=== PATIENT | female | born 1990 | race Caucasian/White ===

== ENCOUNTER → 2021-01-01 | Outpatient (CLI) | payer SELFPAY ==
[2021-01-01 14:37] VITALS: BMI 42.0
== END | disposition home or self-care (01) ==
LOC: LABSPEC 16:32
PROVIDERS: PCP Physician Assistant; Referring Provider Obstetrics & Gynecology; Visit Provider Obstetrics & Gynecology
DX: Z34.90 Encounter for supervision of normal pregnancy, unspecified, unspecified trimester (principal)
CPT/HCPCS: 87086; 87088

== ENCOUNTER → 2021-02-08 10:47 | Outpatient (CLI) | payer SELFPAY ==
[2021-01-17 09:03] VITALS: BMI 42.0
[2021-02-08 11:14] LABS: Absolute Lymphocyte Count 1.98 X10^3/uL (0.83-4.51); Absolute Neutrophil Count 7.3 X10^3/uL (2.0-7.7); Basophil# 0.04 X10^3/uL; Basophil% 0.4 % (0-1); Eosinophil# 0.12 X10^3/uL; Eosinophils% 1.2 % (0-5); Hematocrit 35.6 % (37-47); Hemoglobin 11.8 g/dL (12.0-15.0); Lymphocyte # 1.98 X10^3/ul (0.83-4.51); Lymphocyte % 19.9 % (19-41); Mean Corp Hgb Conc 33.1 g/dL (32-36); Mean Corpuscular Hgb 27.4 pg (27.0-32.0); Mean Corpuscular Volume 82.8 fL (81-99); Mean Platelet Vol. 11.4 fl (6.2-12.0); Monocyte# 0.47 X10^3/uL; Monocyte% 4.7 % (0-10); NRBC Flagged by Analyzer 0 % (0-5); Neutrophil # 7.32 X10^3/uL (2.7-7.7); Neutrophil % 73.4 % (47-70); Platelet Count 289 K/mm3 (150-450); RBC Distribution Width CV 14.7 % (11.6-14.6); RBC Distribution Width SD 44.5 fl (35.1-43.9)
[2021-02-08 11:39] LABS: Glucose Challenge Gest 1H 50g 133 mg/dL (70-140)
[2021-02-08 11:47] LABS: Rubella IgG Reactive (Nonreactive)
[2021-02-08 13:43] LABS: Amphetamine Urine VISTA NEGATIVE (<1000 ng/mL); Barbiturate Urine VISTA NEGATIVE (< 200 ng/mL); Benzodiazepine Urine VISTA NEGATIVE (< 200 ng/mL); Cocaine Urine VISTA NEGATIVE (< 300 ng/mL); Ecstacy Urine VISTA NEGATIVE (< 500 ng/mL); Methadone Urine VISTA NEGATIVE (< 300 ng/mL); PCP Urine VISTA NEGATIVE (< 25 ng/mL); THC Urine VISTA NEGATIVE (< 50 ng/mL); Vista UDS pH Range 5
[2021-02-08 15:45] LABS: Chlamydia Trachomatis by PCR Negative (Negative); Neisserai gonorrhoeae by PCR Negative (Negative); Probe Check PASS; Sample Adequacy Control PASS; Specimen Processing Control PASS
== END ==
PROVIDERS: Nurse Practitioner Women's Health; PCP Physician Assistant; Referring Provider Obstetrics & Gynecology; Visit Provider Obstetrics & Gynecology
DX: O99.211 Obesity complicating pregnancy, first trimester (principal); Z3A.00 Weeks of gestation of pregnancy not specified
CPT/HCPCS: 36415; 80307; 82950; 85025; 86762; 86850; 86900; 86901; 87491; 87591

== ENCOUNTER → 2021-03-20 08:11 | Outpatient (CLI) | payer SELFPAY ==
[2021-02-08 11:23] VITALS: BMI 42.0
--- NOTE | 2021-03-20 08:20 | US_ITS ---
STUDY: SECOND AND THIRD TRIMESTER OBSTETRICAL ULTRASOUND REASON FOR EXAM: Female, 31 years old anatomy LMP: 10/29/2020. TECHNIQUE: Transabdominal and Transvaginal TECHNICAL QUALITY: Adequate. PRIOR ULTRASOUND: None. FINDINGS: There is a single intrauterine fetus. The fetus is in an transverse lie with the head on the maternal left side. There is demonstrated cardiac activity with a heart rate of 140 bpm. There is a normal amniotic fluid volume. The largest amniotic fluid pocket measures 6 cm x 3.4 cm. The amniotic fluid index (SNADRA) is within normal limits. The placenta is anterior in location and is not low lying. There are Grade 0 placental changes. The cervix measures 5.3 cm in length. The bilateral adnexal regions are normal. BIOMETRY: BPD: 4.19 cm: 18 weeks, 4 days HC: 16.12 cm: 18 weeks, 6 days AC: 14.22 cm: 19 weeks, 4 days FL: 3.1 cm: 19 weeks, 4 days CI: 73% FL/BPD: 74% FL/HC: FL/AC: 22% HC/AC: 1.13 age by current US: 19 weeks, 0 days. LITA by current US: 08/14/2021. Estimated weight: 296 grams, +/- 44 grams, 12 %. Age by LMP: 20 weeks, 2 days. LITA by LMP: 08/05/2021. ANATOMY: Gender: Indeterminant Cranium: Normal lateral ventricles. Normal choroid plexus. Normal cerebellum. Normal cisterna magna. Normal face, nose and lips. Chest: Normal 4-chamber heart. Abdomen/Pelvis: Normal diaphragm. Normal stomach. Normal abdominal wall. Normal cord insertion. Normal 3 vessel cord. Normal kidneys. Normal bladder. Spine: Normal cervical spine. Normal thoracic spine. Normal lumbar spine. Normal sacrum. Extremities: Normal bilateral upper extremities. Normal bilateral lower extremities. IMPRESSION: Single live intrauterine gestation with a mean gestational age of 19 weeks. Electronically Signed: Clayton Parr MD at 13:57 EDT , Service support , STUDY: FIRST TRIMESTER OBSTETRICAL ULTRASOUND REASON FOR EXAM: Female, 31 years old anatomy LMP: TECHNIQUE: Transvaginal TECHNICAL QUALITY: Adequate. PRIOR ULTRASOUND: None. FINDINGS: Transvaginal examination was obtained for measurement of the uterine cervix. US/OB Anatomy Scan IMPRESSION: The cervix measures 5.3 cm in length. Electronically Signed: Clayton Parr MD at 13:58 EDT , Service support ,
--- NOTE | 2021-03-20 08:20 | US_ITS ---
STUDY: SECOND AND THIRD TRIMESTER OBSTETRICAL ULTRASOUND REASON FOR EXAM: Female, 31 years old anatomy LMP: 10/29/2020. TECHNIQUE: Transabdominal and Transvaginal TECHNICAL QUALITY: Adequate. PRIOR ULTRASOUND: None. FINDINGS: There is a single intrauterine fetus. The fetus is in an transverse lie with the head on the maternal left side. There is demonstrated cardiac activity with a heart rate of 140 bpm. There is a normal amniotic fluid volume. The largest amniotic fluid pocket measures 6 cm x 3.4 cm. The amniotic fluid index (SANDRA) is within normal limits. The placenta is anterior in location and is not low lying. There are Grade 0 placental changes. The cervix measures 5.3 cm in length. The bilateral adnexal regions are normal. BIOMETRY: BPD: 4.19 cm: 18 weeks, 4 days HC: 16.12 cm: 18 weeks, 6 days AC: 14.22 cm: 19 weeks, 4 days FL: 3.1 cm: 19 weeks, 4 days CI: 73% FL/BPD: 74% FL/HC: FL/AC: 22% HC/AC: 1.13 age by current US: 19 weeks, 0 days. LITA by current US: 08/14/2021. Estimated weight: 296 grams, +/- 44 grams, 12 %. Age by LMP: 20 weeks, 2 days. LITA by LMP: 08/05/2021. ANATOMY: Gender: Indeterminant Cranium: Normal lateral ventricles. Normal choroid plexus. Normal cerebellum. Normal cisterna magna. Normal face, nose and lips. Chest: Normal 4-chamber heart. Abdomen/Pelvis: Normal diaphragm. Normal stomach. Normal abdominal wall. Normal cord insertion. Normal 3 vessel cord. Normal kidneys. Normal bladder. Spine: Normal cervical spine. Normal thoracic spine. Normal lumbar spine. Normal sacrum. Extremities: Normal bilateral upper extremities. Normal bilateral lower extremities. IMPRESSION: Single live intrauterine gestation with a mean gestational age of 19 weeks. Electronically Signed: Clayton Parr MD at 13:57 EDT , Service support , STUDY: FIRST TRIMESTER OBSTETRICAL ULTRASOUND REASON FOR EXAM: Female, 31 years old anatomy LMP: TECHNIQUE: Transvaginal TECHNICAL QUALITY: Adequate. PRIOR ULTRASOUND: None. FINDINGS: Transvaginal examination was obtained for measurement of the uterine cervix. US/Transvaginal w/Preg US IMPRESSION: The cervix measures 5.3 cm in length. Electronically Signed: Clayton Parr MD at 13:58 EDT , Service support ,
== END ==
PROVIDERS: PCP Physician Assistant; Referring Provider Nurse Practitioner Women's Health; Visit Provider Nurse Practitioner Women's Health
DX: Z36.89 Encounter for other specified antenatal screening (principal)
CPT/HCPCS: 76805; 76817

== ENCOUNTER → 2021-05-09 09:24 | Outpatient (CLI) | payer SELFPAY ==
[2021-05-09 09:39] LABS: Absolute Lymphocyte Count 1.97 X10^3/uL (0.83-4.51); Absolute Neutrophil Count 10.5 X10^3/uL (2.0-7.7); Basophil# 0.03 X10^3/uL; Basophil% 0.2 % (0-1); Eosinophil# 0.11 X10^3/uL; Eosinophils% 0.8 % (0-5); Hematocrit 33.5 % (37-47); Hemoglobin 11.3 g/dL (12.0-15.0); Lymphocyte # 1.97 X10^3/ul (0.83-4.51); Mean Corp Hgb Conc 33.7 g/dL (32-36); Mean Corpuscular Hgb 28.5 pg (27.0-32.0); Mean Corpuscular Volume 84.4 fL (81-99); Mean Platelet Vol. 11.6 fl (6.2-12.0); Monocyte# 0.55 X10^3/uL; Monocyte% 4.2 % (0-10); NRBC Flagged by Analyzer 0 % (0-5); Neutrophil # 10.45 X10^3/uL (2.7-7.7); Neutrophil % 79.4 % (47-70); Platelet Count 282 K/mm3 (150-450); RBC Distribution Width CV 14.6 % (11.6-14.6); RBC Distribution Width SD 44.7 fl (35.1-43.9); Red Blood Count 3.97 M/mm3 (4.2-5.4); White Blood Count 13.2 K/mm3 (4.4-11.0)
[2021-05-09 10:03] LABS: Glucose Challenge Gest 1H 50g 130 mg/dL (70-140)
== END ==
PROVIDERS: PCP Physician Assistant; Referring Provider Obstetrics & Gynecology; Visit Provider Obstetrics & Gynecology
DX: Z34.81 Encounter for supervision of other normal pregnancy, first trimester (principal)
CPT/HCPCS: 36415; 82950; 85025

== ENCOUNTER → 2021-06-25 10:49 | Outpatient (CLI) | payer SELFPAY ==
--- NOTE | 2021-06-25 10:57 | US_ITS ---
STUDY: SECOND AND THIRD TRIMESTER OBSTETRICAL ULTRASOUND - LIMITED REASON FOR EXAM: Female, 31 years old . growth. LMP: 10/29/2020. PRIOR ULTRASOUND: Comparison is made with prior study dated 03/20/2021. TECHNIQUE: Transabdominal TECHNICAL QUALITY: Adequate. FINDINGS: There is a single intrauterine fetus. The fetus is in a cephalic presentation. There is demonstrated cardiac activity with a heart rate of 149 bpm. There is a normal amniotic fluid volume. The largest amniotic fluid pocket measures 4.3 cm x 2.9 cm. The amniotic fluid index (SANDRA) is 12.02 cm. The placenta is anterior in location and is not low lying. There are Grade 1 placental changes. The cervix measures 4.6 cm in length. BIOMETRY: BPD: 7.92 cm: 31 weeks, 5 days HC: 29.72 cm: 32 weeks, 6 days AC: 29.14 cm: 33 weeks, 0 days FL: 6.25 cm: 30 weeks, 2 days Age by LMP: 34 weeks, 1 days. LITA by LMP: 08/05/2021. age by prior US: 32 weeks, 6 days. LITA by prior US: 08/14/2021. age by current US: 32 weeks, 4 days. LITA by current US: 08/16/2021. Estimated weight: 2052 grams, +/- 300 grams, 13.2 percentile. US/OB Limited With Biometrics IMPRESSION: Single live intrauterine gestation with a mean gestational age of 32 weeks and 6 days. The measurements obtained today fall within normal limits. Electronically Signed: Clayton Parr MD at 13:07 EST , Service support ,
== END ==
PROVIDERS: PCP Physician Assistant; Referring Provider Obstetrics & Gynecology; Visit Provider Obstetrics & Gynecology
DX: O98.513 Other viral diseases complicating pregnancy, third trimester (principal); U07.1 COVID-19; Z3A.32 32 weeks gestation of pregnancy
CPT/HCPCS: 76816

== ENCOUNTER 2021-07-11 12:45 | Outpatient (CLI) | payer SELFPAY | END 2021-07-11 23:59 | disposition short-term general hospital (02) | LOC: LABSPEC 12:46 | PROVIDERS: PCP Physician Assistant; Visit Provider Obstetrics & Gynecology | DX: Z34.81 Encounter for supervision of other normal pregnancy, first trimester (principal) | CPT/HCPCS: 87081 ==

== ENCOUNTER 2021-08-01 19:15 | Inpatient (IN) | payer SELFPAY ==
[2021-08-01 20:41] VITALS: PULSE 111; O2SAT 97
[2021-08-01 20:43] VITALS: BP 119/72; PULSE 109
[2021-08-01 20:52] VITALS: BMI 36.7
[2021-08-01] MEDS: Lactated Ringers 1,000 ML 50 ML IV (21:15)
[2021-08-01 21:31] LABS: Absolute Lymphocyte Count 2.25 X10^3/uL (0.83-4.51); Absolute Neutrophil Count 9.7 X10^3/uL (2.0-7.7); Basophil# 0.03 X10^3/uL; Basophil% 0.2 % (0-1); Eosinophil# 0.05 X10^3/uL; Eosinophils% 0.4 % (0-5); Hematocrit 32.2 % (37-47); Hemoglobin 10.4 g/dL (12.0-15.0); Lymphocyte # 2.25 X10^3/ul (0.83-4.51); Lymphocyte % 17.6 % (19-41); Mean Corp Hgb Conc 32.3 g/dL (32-36); Mean Corpuscular Hgb 27.8 pg (27.0-32.0); Mean Corpuscular Volume 86.1 fL (81-99); Mean Platelet Vol. 12.2 fl (6.2-12.0); Monocyte# 0.66 X10^3/uL; Monocyte% 5.2 % (0-10); NRBC Flagged by Analyzer 0 % (0-5); Neutrophil # 9.72 X10^3/uL (2.7-7.7); Neutrophil % 76.2 % (47-70); Platelet Count 269 K/mm3 (150-450); RBC Distribution Width CV 15.2 % (11.6-14.6); RBC Distribution Width SD 47.7 fl (35.1-43.9); Red Blood Count 3.74 M/mm3 (4.2-5.4); White Blood Count 12.8 K/mm3 (4.4-11.0)
[2021-08-01 22:27] VITALS: TEMP 37.4
[2021-08-01 22:30] VITALS: BP 100/61; PULSE 111
[2021-08-01 22:31] VITALS: PULSE 96; O2SAT 97
[2021-08-01] MEDS: miSOPROStol 25 MCG TABLET VAGINAL (23:05)
[2021-08-01 23:13] LABS: HIV - WCH Non-Reactive (Nonreactive); Hepatitis C Antibody Non-Reactive (Nonreactive); Syphilis Antibodies Non-reactive
[2021-08-02] VITALS (16 sets, daily range): BP systolic 99–128; BP diastolic 57–79; PULSE 47–113; RESP 18; TEMP 36.5–36.9; O2SAT 97–99
[2021-08-02] MEDS: Acetaminophen 500 MG Tablet PO (02:24)
[2021-08-02] MEDS: miSOPROStol 25 MCG TABLET VAGINAL (03:25)
[2021-08-02] MEDS: Lactated Ringers 500 ML 999 ML IV (06:51)
--- NOTE | 2021-08-02 07:35 | HP.PCM.OB_ITS ---
HPI - General General Date of Admission: 08/01/21 HPI Narrative MANA MENDOZA, is a 31y/o @ 39 weeks 4 days who presents to L&D for IOL due to recurrent loss, MTHFR, and maternal discomfort at term. She denies loss of fluid or dec fm. Overnight she was given 2 doses of cytotec and states that she did not sleep well secondary to contractions. Maternal Data Information LITA Calculator Estimated Delivery Date Method Current WG Current Estimate 08/05/21 LMP (Certain) 39w 4d PFSH PFSH Medical History (Updated 07/25/21 @ 09:46 by Alie Mack) COVID-19 Home Medications aspirin 81 mg tablet,delayed release 81 mg PO DAILY 01/01/21 [History Last Taken 07/29/21 08:00] levomefolate calcium 7.5 mg tablet 7.5 mg PO DAILY 01/01/21 [History Last Taken 08/01/21 10:00] ondansetron HCl 4 mg tablet 4 mg PO Q8H PRN #20 tab 01/17/21 [Rx Last Taken Unknown] Allergy/AdvReac Type Severity Reaction Status Date / Time No Known Allergies Allergy Verified 08/01/21 20:53 Family History Grandfather Cancer Grandmother Cancer Surgical History (Updated 08/01/21 @ 21:28 by Hayde Rogers) History of surgery S/P dilation and curettage Social History Smoking Status: Never smoker alcohol intake: never substance use type: does not use caffeine: Yes additional social history: -Caesar History 7 Elective abortions Hx Para 2 Spontaneous abortions 4 Hx # Term Pregnancies Ectopic pregnancies Hx # Pregnancies Multiple births # of living children 2 Past Pregnancies Del. Date Name GA/Weeks Outcome Route Bth Weight Infant Gen Labor Lgth Anesthesia Del Locatn Provider FOB 04/12/10 Kennedy 41 live - full term 8lbs 1oz Male epidural [facility] Dr. Sayda Maynard 01/31/13 Paul 41 live - full term 8lbs 3oz [facility] Delivery Date: 10/07/10 No issues during or delivery Alie Mack Delivery Date: 01/31/13 No issues during or delivery. FrederickAlie Visit Details Expected Delivery Route/Plan Labor Preferences- labor support person: [] labor intervention preferences: [] pain management options preferred: [] cut cord/dad catch: [] : [] PP control planned: [] discussed possible routes of delivery and associated risks: [] special requests: [] Plans covid vaccine: counseled regarding risk of covid in vs vaccination and declined vaccination flu vaccine: declined tdap vaccine: declined rhogam: [] LARC form signed: [] Problem list reviewed and updated with the most current plan of care details and appropriate orders placed. Relevant counseling for the gestational age provided. Continue routine care and follow up unless otherwise noted in visit notes/problem list details OB Flowsheet Initial Weight: 215 lb Date -?-?-?-?-?-?-?-?-?-?-?-?- EGA Weight BP Urine Prot -?-?-?-?-?-?-?-?-?-?-?-?- Glucose FHR FuHt Pres Dilation -?-?-?-?-?-?-?-?-?-?-?-?- Effaced St Visit Note 01/01/21 -?-?-?-?-?-?-?-?-?-?-?-?- 9w 1d 215 lb 2 oz (+2 oz) 108/86 -?-?-?-?-?-?-?-?-?-?-?-?- 175 -?-?-?-?-?-?-?-?-?-?-?-?- GP - CRL 22mm co nsistent with LMP 01/17/21 -?-?-?-?-?-?-?-?-?-?-?-?- 11w 3d 211 lb (-4 lb) 120/80 Negative -?-?-?-?-?-?-?-?-?-?-?-?- Negative 168 -?-?-?-?-?-?-?-?-?-?-?-?- GP - no cramping or bleeding. Attempted to do NOB labs with GCT but threw up. Will pretreat with zofran and do next visit. Discussed tx of constipation 02/08/21 -?-?-?-?-?-?-?-?-?-?-?-?- 14w 4d 118/82 Negative -?-?-?-?-?-?-?-?-?-?-?-?- Negative 160 -?-?-?-?-?-?-?-?-?-?-?-?- MH-NO Vb, LOF. P NL today. US active, live iup. Order [facility] anatomy US 03/14/21 -?-?-?-?-?-?-?-?-?-?-?-?- 19w 3d 209 lb (-6 lb) 126/82 Negative -?-?-?-?-?-?-?-?-?-?-?-?- Negative 150 -?-?-?-?-?-?-?-?-?-?-?-?- GP - no cramping or bleeding. Anatomy next week. Birthday is today - going to coffee with sisters. 04/11/21 -?-?-?-?-?-?-?-?-?-?-?-?- 23w 3d 207 lb 6 oz (-7 lb 10 oz) 106/76 Negative -?-?-?-?-?-?-?-?-?-?-?-?- Negative 155 23 -?-?-?-?-?-?-?-?-?-?-?-?- GP - no ctx, LOF , VB, DFM. Anatomy nl except could not tell gender. Declines follow-up scan. 05/09/21 -?-?-?-?-?-?-?-?-?-?-?-?- 27w 3d 211 lb (-4 lb) 118/82 -?-?-?-?-?-?-?-?-?-?-?-?- 160 28 -?-?-?-?-?-?-?-?-?-?-?-?- SM- no vb lof go od fm no regular ctx declined tdap 05/29/21 -?-?-?-?-?-?-?-?-?-?-?-?- 30w 2d 212 lb 8 oz (-2 lb 8 oz) 100/70 Negative -?-?-?-?-?-?-?-?-?-?-?-?- Negative 157 30 -?-?-?-?-?-?-?-?-?-?-?-?- JV- no lof ,vagi nal bleeding, or cramping. + fm. 06/27/21 -?-?-?-?-?-?-?-?-?-?-?-?- 34w 3d 209 lb 4 oz (-5 lb 12 oz) 124/84 Negative -?-?-?-?-?-?-?-?-?-?-?-?- Negative 145 34 Transverse -?-?-?-?-?-?-?-?-?-?-?-?- JV- plan for bed side ultrasound next visit for presentation. no lof, vaginal bleeding, or dec fm. 07/11/21 -?-?-?-?-?-?-?-?-?-?-?-?- 36w 3d 206 lb 4 oz (-8 lb 12 oz) 110/82 Negative -?-?-?-?-?-?-?-?-?-?-?-?- Negative 167 36 Cephalic 1 -?-?-?-?-?-?-?-?-?-?-?-?- 50 -3 JV- ultras ound today shows vtx presentation. GBS collected. stop progesterone 07/17/21 -?-?-?-?-?-?-?-?-?-?-?-?- 37w 2d 208 lb (-7 lb) 106/74 Negative -?-?-?-?-?-?-?-?-?-?-?-?- Negative 150 37 Cephalic -?-?-?-?-?-?-?-?-?-?-?-?- SM- no vb lof go od fm no regular ctx 07/25/21 -?-?-?-?-?-?-?-?-?-?-?-?- 38w 3d 207 lb 6 oz (-7 lb 10 oz) 120/80 Negative -?-?-?-?-?-?-?-?-?-?-?-?- Negative 157 Cephalic 1 -?-?-?-?-?-?-?-?-?-?-?-?- 50 -3 JV- no lof , vaginal bleeding, or dec fm. plan IOL at 39+ weeks h/o mthfr, recurrent loss 08/01/21 -?-?-?-?-?-?-?-?-?-?-?-?- 39w 3d 207 lb 6.4 oz (-7 lb 9.6 oz) 119/72 100/61 127/78 128/76 -?-?-?-?-?-?-?-?-?-?-?-?- -?-?-?-?-?-?-?-?-?-?-?-?- ROS Constitutional Constitutional: Denies change in weight, fatigue, fever(s), headache(s), poor appetite or weakness Eyes Eyes: Denies blurry vision, change in vision, seeing flashes or spots in vision ENT HEENT: Denies dizziness, headache(s), loss taste/smell or sore throat Cardiovascular Cardiovascular: Denies chest pain, dizziness, dyspnea, irregular heart rhythm, leg edema, palpitations, rapid heart rate or vomiting Respiratory/Chest Respiratory/Chest: Denies chest tightness, cough, dyspnea or breast pain Gastrointestinal Gastrointestinal: Denies abdominal pain, anorexia, constipation, cramping, diarrhea, hemorrhoids, vomiting or weight changes Genitourinary Genitourinary: Denies dysuria, flank pain, genital lesions, genital pain, urinary frequency or urinary urgency Musculoskeletal Musculoskeletal: Denies back pain, difficulty walking, joint pain, limited range of motion, muscle cramps or numbness Integumentary Integumentary: Denies lesions or unusual bruising Neurologic Neurologic: Denies abnormal movements, abnormal speech, dizziness, numbness, seizure-like activity or syncope Psychiatric Psychiatric: Denies anxiety, behavioral changes, change in appetite, change in libido, cognitive impairment, confusion, depression, difficulty concentrating, hallucinations or suicidal thoughts Endocrine Endocrinology: Denies excessive sweating, polydipsia or polyuria Hematologic/Lymphatic Hematologic/Lymphatic: Denies easy bleeding, easy bruising or lymphadenopathy Allergic/Immunologic Allergic/Immunologic: Denies itchy eyes, lip swelling, seasonal rhinorrhea, rhinitis, throat swelling, tongue swelling, eczemia, wheezing or asthma Vital Signs Vital Signs Vital Signs: 08/01/21 20:41 08/01/21 20:43 08/01/21 22:27 Temperature 99.4 F H Temperature Source Temporal Pulse Rate 111 H 109 H Blood Pressure 119/72 BP Systolic 119 BP Diastolic 72 Pulse Ox 97 08/01/21 22:30 08/01/21 22:31 08/02/21 03:12 Temperature 97.9 F Temperature Source Temporal Pulse Rate 111 H 96 97 Blood Pressure 100/61 127/78 H BP Systolic 100 127 BP Diastolic 61 78 Pulse Ox 97 99 08/02/21 06:58 08/02/21 07:22 Temperature 98.3 F 98.2 F Temperature Source Temporal Temporal Pulse Rate 103 H Blood Pressure 128/76 H BP Systolic 128 BP Diastolic 76 Pulse Ox 98 Weight Weight: 207 lb 6.4 oz Body Mass Index (BMI) 36.7 Physical Exam Const alert, oriented x3, no apparent distress and healthy appearing General Appearance: cooperative; Negative for anxious HEENT normocephalic Face and Sinus: normal facial exam Eyes EOMs intact bilaterally and no scleral icterus General Eye: normal appearance of both eyes Neck full ROM and supple Lymph Lymphatic: no lymphadenopathy noted Chest Chest: abnormal inspection of the chest Resp normal respiratory effort Effort and Inspection: able to speak in complete sentences Cardio regular rate GI soft to palpation and non-tender Inspection: gravid Palpation: soft; Negative for tender external exam normal Amniotic Fluid: other cx: 3/80/0 and anterior. membranes ruptured with clear fluid return. FHT cat 1, contractins q1-2 min. Back/Spine no CVA tenderness Extremity normal to inspection, full ROM and no clubbing, cyanosis or edema General Extremity: Negative for calf tenderness or edema Skin Lesions: no lesions Rashes: no rashes Psych mental status grossly normal Labs Labs Labs: Blood Type B POSITIVE Antibody Screen NEGATIVE Hct 32.2 % (37-47) L Hgb 10.4 g/dL (12.0-15.0) L Pap Smear Negative Obstetrics US Syphilis Total Ab Non-reactive Rubella IgG Antibody Reactive (Nonreactive) Hep Bs Antigen Pending HIV 1&2 Antibody Non-Reactive (Nonreactive) C.trachomatis DNA (PCR) Negative (Negative) Glucose 1 Hr 50 gm 130 mg/dL (70-140) Assessment & Plan (1) Supervision of normal : QUALIFIERS: Normal : other normal Trimester: first trimester Qualified Code(s): Z34.81 - Encounter for supervision of other normal , first trimester COMMENT: PRR (minimal labs) LITA 08/05/21 [place] PC:Paul Benavides, Spouse:Caesar (2) MTHFR deficiency complicating : QUALIFIERS: Trimester: first trimester Qualified Code(s): O99.281 - Endocrine, nutritional and metabolic diseases complicating , first trimester; E72.12 - Methylenetetrahydrofolate reductase deficiency COMMENT: Taking methylfolate. On ASA. (3) : QUALIFIERS: Weeks of gestation: 38 weeks Qualified Code(s): Z3A.38 - 38 weeks gestation of COMMENT: neg. GBS, Declines NIPT, carrier, and AFP; NL anatomy. declined std testing, agrees to be done at delivery. (4) Recurrent loss: COMMENT: Miscarriage x4. Taking ASA. (5) COVID-19: COMMENT: suspected positive, asa and growth US 35-36 wks- NL growth 06/25. PLAN: Patient presents IOL, plan management for with cytotec/pitocin/AROM. Pain management: plans epidural. GBS negative. Management of any complications: I have reviewed the [facility] and made any clinically relevant updates.
[2021-08-02 09:16] LABS: Hepatitis B Surface Antigen Nonreactive (Nonreactive)
[2021-08-02] MEDS: Oxytocin 30 units/NS 500 ml 30 UNITS/500 ML IV.SOLN 334 UNITS IV (11:16)
--- NOTE | 2021-08-02 11:37 | OP.PCM_ITS ---
Assessment & Plan (1) Supervision of normal : QUALIFIERS: Normal : other normal Trimester: first trimester Qualified Code(s): Z34.81 - Encounter for supervision of other normal , first trimester COMMENT: PRR (minimal labs) LITA 08/05/21 [place]! PC:Paul Benavides, Spouse:Caesar (2) MTHFR deficiency complicating : QUALIFIERS: Trimester: first trimester Qualified Code(s): O99.281 - Endocrine, nutritional and metabolic diseases complicating , first trimester; E72.12 - Methylenetetrahydrofolate reductase deficiency COMMENT: Taking methylfolate. On ASA. (3) : QUALIFIERS: Weeks of gestation: 38 weeks Qualified Code(s): Z3A.38 - 38 weeks gestation of COMMENT: neg. GBS, Declines NIPT, carrier, and AFP; NL anatomy. declined std testing, agrees to be done at delivery. (4) Recurrent loss: COMMENT: Miscarriage x4. Taking ASA. (5) COVID-19: COMMENT: suspected positive, asa and growth US 35-36 wks- NL growth 06/25. Maternal Data Information LITA Calculator Estimated Delivery Date Method Current WG Current Estimate 08/05/21 LMP (Certain) 39w 4d Vaginal Delivery Maternal Presentation Maternal Presentation: Elective Induction Type of Induction: Amniotomy and Cytotec Operative Information Date of Procedure: 08/02/21 Pre-Operative Diagnosis: 39 weeks, MTHFR, COVID in , , recurrent losses Post-Operative Diagnosis: 39 weeks, MTHFR, COVID in , , recurrent losses Type of Anesthesia: None Estimated Blood Loss: 200cc Findings Description of Procedure: Patient began pushing and delivered the head in the MORENITA presentation. The head was delivered atraumatically and a loose nuchal cord ?1 was identified and easily reduced over the 's head. The anterior and posterior shoulders delivered without complication followed by the rest of the infant and the was placed on the maternal abdomen. Delayed cord clamping was employed for approximately 60 seconds. Cord was clamped and cut and gentle traction was applied to the cord and the placenta delivered spontaneously immediately following it was noted to be intact with three-vessel cord. The perineum and vagina were inspected and noted to have no laceration. EBL was 200cc. Patient and tolerated delivery well. Presentation: MORENITA Amniotic Membrane Rupture Type: Spontaneous Amniotic Fluid Description: Clear Placental Delivery Description: Spontaneous Placenta Disposition: [facility] Cord Vessel Description: 3 Vessels Cord Entanglement: Around neck x 1, loose Infant A Gender: Female (1 minute): 8 (5 minute): 9 Delayed Cord Clamping: Yes Post Vaginal Delivery Medications Given After Delivery: IV Pitocin Episiotomy Description: None Laceration: None Complication Complications: None Multi Select Codes Urinary/Genital Urinary/Genital CPT Codes: 40592 Vaginal Delivery [facility]
[2021-08-02] MEDS: 0.9% Saline Lock 10 ML Syringe IV (13:52)
[2021-08-02] MEDS: Ibuprofen 600 MG Tablet PO (14:10)
[2021-08-02] MEDS: Acetaminophen 500 MG Tablet 1000 MG PO (17:57)
--- NOTE | 2021-08-02 20:27 | PCM.DC ---
Discharge Instructions Diet Discharge Diet: No restrictions Activity Discharge Activity: Return to Normal Activity, May Not Drive (while taking narcotic pain medications.) and May Shower May resume sexual activity in: 4-6 weeks Dressing / Incision Call your doctor if your incision/area has: Continuous Slow Oozing, Sudden Increased Bleeding, Increased Pain/ Swelling, Increased Redness and Foul Smelling Discharge Follow Up Care Please Follow Up With: Nancy Tracy DO When: Call [phone] to make an appointment with your doctor in 6 weeks. If you had elevated blood pressure or 4th degree laceration, you will need to be seen in 2 weeks. Test Results: Test results from this visit will be discussed in further detail at your follow-up appointment, if applicable. Discharge Plan Admission Admit Date/Time: 08/01/21 19:15 Primary Reason for Your Visit: vaginal delivery Attending Provider: Nancy Tracy Primary Care Provider: Le Miller Discharge Orders/Prescriptions Prescriptions: New ibuprofen 800 mg tablet 800 mg PO Q8H PRN (Reason: pain) 7 Days Qty: 30 RF: 0 Continued levomefolate calcium [L-Methylfolate] 7.5 mg tablet 7.5 mg PO DAILY RF: 0 Discontinued aspirin 81 mg tablet,delayed release (DR/EC) 81 mg PO DAILY RF: 0 ondansetron HCl 4 mg tablet 4 mg PO Q8H PRN (Reason: nausea and vomiting) Qty: 20 RF: 0 Referrals / Follow Up: Le Miller PA [Primary Care Provider] - Disposition Disposition (needs filled in before D/C Order can be placed): Home, Self Care
[2021-08-03] VITALS (8 sets, daily range): BP systolic 109–121; BP diastolic 69–76; PULSE 98–241; RESP 16–18; TEMP 36.3–36.6; O2SAT 83–96
[2021-08-03] MEDS: Ibuprofen 600 MG Tablet PO ×2 (00:46→12:07)
--- NOTE | 2021-08-03 08:21 | PCM.PN.OB ---
Subjective Subjective Patient doing well without complaints. Tolerating PO. Ambulating and voiding without difficulty. Feeding well. Denies chest pain, shortness of breath, calf pain/swelling, fevers, chills, lightheadedness. Objective Data Objective Data Vital Signs: Vital Signs Temp Pulse Resp BP Pulse Ox 97.5 F L 120 H 18 114/75 97 08/03/21 04:03 08/03/21 08:13 08/03/21 04:03 08/03/21 08:13 08/02/21 19:46 Oxygen Delivery Method Room Air Weight: 207 lb 6.4 oz Body Mass Index (BMI) 36.7 Intake & Output: Intake and Output for Last 24 Hours 08/01/21 08/02/21 08/03/21 23:59 23:59 23:59 Intake Total 1480 / 1480 Output Total 400 / 400 Balance 1080 / 1080 Lab / Micro Data Result Diagrams: 08/01/21 21:15 Labs: Laboratory Results - last 24 hr 08/01/21 21:15: Hep Bs Antigen Nonreactive Micro: Microbiology 08/01/21 21:00 Nasal Secretion SARS-CoV-2 Antigen (Rapid) - Final ROS Constitutional Constitutional: Denies chills, fatigue, fever(s), poor appetite or weakness Eyes Eyes: Denies blurry vision, change in vision, seeing flashes or spots in vision ENT HEENT: Denies dizziness, headache(s), loss taste/smell or sore throat Cardiovascular Cardiovascular: Denies chest pain, dizziness, dyspnea, irregular heart rhythm, palpitations or rapid heart rate Respiratory/Chest Respiratory/Chest: Denies chest tightness, cough, dyspnea or breast pain Gastrointestinal Gastrointestinal: Denies abdominal pain, constipation or vomiting Genitourinary Genitourinary: Denies dysuria or flank pain Musculoskeletal Musculoskeletal: Denies difficulty walking, joint pain, limited range of motion or numbness Neurologic Neurologic: Denies abnormal movements, abnormal speech, dizziness, numbness, seizure-like activity or syncope Psychiatric Psychiatric: Denies anxiety, behavioral changes, change in appetite, confusion, depression or suicidal thoughts Physical Exam Const alert, oriented x3 and no apparent distress General Appearance: cooperative and comfortable Resp normal respiratory effort Cardio regular rate GI normal to inspection, nondistended, normoactive bowel sounds GI Narrative: uterus is firm below umbilicus Palpation: soft Bimanual Exam - Adnexa, Other: Negative for cul-de-sac fullness Back/Spine no CVA tenderness and thoraco-lumbar ROM normal Extremity normal to inspection, no clubbing, cyanosis or edema, no calf tenderness and no pedal edema Psych mental status grossly normal, thought process normal, cooperative, affect normal, speech normal, activity/motor behavior normal, denies homicidal ideation and denies suicidal ideation Assessment & Plan (1) Status post vaginal delivery: PLAN: s/p PPD # 1 1. routine post delivery care 2. breast feeding- support given 3. rh positive 4. pt would like to be discharged to home today after her baby's tests have been completed
--- NOTE | 2021-08-03 09:36 | NURSING ---
heart rate auscultated. regular rate. patient denies shortness of breath or pain at this time. resting in bed.
== END 2021-08-03 14:35 | disposition home or self-care (01) | DRG 805 ==
PROVIDERS: Admitting Provider Obstetrics & Gynecology; PCP Physician Assistant; Visit Provider Obstetrics & Gynecology
DX: O75.89 Other specified complications of labor and delivery (principal); Z37.0 Single live birth; U07.1 COVID-19; E72.12 Methylenetetrahydrofolate reductase deficiency; O98.52 Other viral diseases complicating childbirth; O69.81X0 Labor and delivery complicated by cord around neck, without compression, not applicable or unspecified; O26.23 Pregnancy care for patient with recurrent pregnancy loss, third trimester; Z79.82 Long term (current) use of aspirin; Z3A.39 39 weeks gestation of pregnancy
CPT/HCPCS: 59025; 59050; 85025; 86703; 86780; 86803; 86850; 86900; 86901; 87340; 87426; 99218; J7120; A4216; G0378

== ENCOUNTER 2021-09-14 17:03 | Outpatient (CLI) | payer SELFPAY ==
[2021-09-22 19:27] LABS: HPV Reflexed? NOT INDICATED
== END 2021-09-14 23:59 | disposition home or self-care (01) ==
PROVIDERS: PCP Physician Assistant; Visit Provider Obstetrics & Gynecology
DX: Z12.4 Encounter for screening for malignant neoplasm of cervix (principal)
CPT/HCPCS: 88175; G0145

== ENCOUNTER → 2022-05-20 | Outpatient (CLI) | payer SELFPAY ==
--- NOTE | 2022-05-20 15:07 | US_ITS ---
INDICATION: Scheduled for DTC after miscarriage week prior to examination EXAMINATION: Ultrasound US OB Transvaginal TECHNIQUE: Transvaginal (for optimal evaluation of the adnexa) pelvic ultrasound was performed. Grayscale, spectral waveform, and color flow Doppler evaluation of the adnexa. COMPARISON: None. LMP: [03/06/2022 Beta-hCG: Unknown FINDINGS: UTERUS: 11.7 x 7.9 x 6.6 cm. RIGHT OVARY: 3.6 x 2.3 x 2.1 cm. 1.7 cm anechoic cyst. LEFT OVARY: 3.7 x 2.5 x 1.2 cm. Normal. FREE FLUID: None. INTRAUTERINE GESTATIONAL SAC(s) (size/shape): None. Heterogenous endometrium measures up to 15 mm thickness, internal vascularity demonstrated.. YOLK SAC: Not identified POLE: Not identified HEART MOTION: Not detected. US/Transvaginal w/Preg US IMPRESSION: No intrauterine demonstrated. Abnormal endometrium suspicious for retained products of conception versus endometritis or hematoma. Electronically Signed: Jeff Azul MD at 17:14 EST ,
== END | disposition home or self-care (01) ==
PROVIDERS: PCP Physician Assistant; Referring Provider Obstetrics & Gynecology; Visit Provider Obstetrics & Gynecology
DX: O09.299 Supervision of pregnancy with other poor reproductive or obstetric history, unspecified trimester (principal); O02.1 Missed abortion
CPT/HCPCS: 76817

== ENCOUNTER 2022-05-21 13:27 | Day surgery (SDC) | payer SELFPAY ==
--- NOTE | 2022-05-21 10:21 | PCM.HP.BLA ---
History and Physical Date of Admission: 05/21/22 Intake Vital Signs ? 05/16/2210:16 05/16/2210:17 Height 5 ft 5 ft Weight: 223 lb 8 oz ? BMI 43.6 ? BP 121/77 H ? Intake Visit Reasons:?FU Miscarriage per [employer] Required: No Is patient in pain?: No Allergies No Known Allergies Allergy (Verified 05/16/22 10:17) Medications levomefolate calcium 7.5 mg tablet (L-Methylfolate) 7.5 mg PO DAILY MTHFR #90 tabs 09/14/21 [Rx Confirmed 05/16/22] mecobalamin-levomefolate calcium-pyridoxal phos 3 mg-35 mg-2 mg tablet (X-Aczugl-N2-B12) 1 tab PO DAILY 30 days #30 tabs 12/10/21 [Rx Confirmed 05/16/22] vitamins no.163-iron bis-gly 20 mg-folate no.10 1 mg tablet (PNV Tabs 20-1) tab PO 05/01/22 [History Confirmed 05/16/22] aspirin 81 mg chewable tablet 81 mg PO DAILY 05/06/22 [History Confirmed 05/16/22] Post menopausal: No Patient : No : No PFSH Medical History? COVID-19 Vaginal delivery Surgical History? History of surgery S/P dilation and curettage Family History? Grandfather CancerGrandmother Cancer Social History? adopted:? No household members:? spouse and children housing:? house number of children:? 3 current occupational status:? unemployed pets and animals:? No history of recent travel:? Yes ([place] ) out of state: Yes out of country: No sexually active:? Yes Smoking Status:? Never smoker alcohol intake:? never substance use type:? does not use well-balanced diet:? daily or most days caffeine:? No eating out:? rarely or never during the past year weight has:? remained stable what type of physical activity do you participate in:? none jono/adventism:? Lutheran seatbelt use:? always do you feel safe at home:? Yes additional social history:? -Caesar [place] HPI FU Miscarriage per Details: MANA MENDOZA is a 32 year old who presents for follow up miscarriage and 2 doses of cytotec. she is still bleeding but not hemorrhaging. no dizziness or sob. She is scheduled now for a suction dilation and curettage to remove any products of conception. She is also requesting fallopian tube removal for permanent sterilization. History ? ? ? 8 ? Elective abortions ? Hx Para ? ? ? 3 ? Spontaneous abortions ? ? ? 5 Hx # Term Pregnancies ? Ectopic pregnancies ? Hx # Pregnancies ? Multiple births ? # of living children ? ? ? 3 Past Pregnancies Del. Date Name GA/Weeks Outcome Route Bth Weight Infant Gen Labor Lgth Anesthesia Del Locatn Provider FOB Unknown ? IOL 04/12/10 Kennedy 41 live - full term 8lbs 1oz Male ? epidural [facility] [place] Dr. Sayda Maynard 01/31/13 Paul 41 live - full term 8lbs 3oz Male ? none [facility] [place] Dr. Jose A Maynard 08/02/21 [place] 38 live - full term 6lbs 4oz Female ? ? [facility] Dr. Chaudhari Delivery Date: 04/12/10? Last Updated by: Alie Mack ? ? ? No issues during or delivery Delivery Date: 01/31/13? Last Updated by: Alie Mack ? ? ? No issues during or delivery. ROS Const ROS Unobtainable: All systems reviewed & are unremarkable except as noted in H Resp Resp: Reports system reviewed and no additional complaints, except as documented; Denies cough GI GI: Reports as per HPI Psych Psych: Reports system reviewed and no additional complaints, except as documented Exam Const General: cooperative, healthy appearing, comfortable and no acute distress Resp Effort & Inspection: normal respiratory effort General: bimanual renal exam normal bilaterally External Female Exam: normal appearance of the urethra Urethra: normal appearance of the urethra Speculum Exam - Vagina: normal appearance of the vagina Speculum Exam - Cervix: normal appearance of the cervix Bimanual Exam- Adnexa, other: normal adnexae and normal Pelvic Support: normal Other: ultrasound shows a 2.5 cm area of retained products in the uterus. Skin General: no rashes or lesions noted Psych Appearance: grossly normal Speech and Movement: speech and movement normal Coding Level of Care Code Off vis,est,level 4 Diagnoses Missed ? O02.1 Contraceptive management? Z30.9 Assessment and Plan Assessment and Plan (1) Missed : ?Status:?Acute ?Comment: CRL now 3 mm with subchorionic hematoma, no FHT seen, plan medical management fu 1 week (2) Contraceptive management: ?Status:?Acute Plan After discussing the patient's diagnosis and treatment plan options, patient wishes to proceed with surgical management.? I have discussed with the patient the risks, benefits, and alternatives of the procedure which include but are not limited to risks of anesthesia, bleeding, infection, possible damage to bowel, bladder, or surrounding vasculature which could lead to additional surgery to evaluate any complications.? Patient agrees to procedure and wishes to proceed.? ACOG/uptodate references given for additional information regarding procedure.? pt will need a suction d&C and also requesting bilateral salpingectomy. surgery scheduled for friday. UPDATE- I have seen the patient and performed any clinically relevant updates to the history and physical exam. Nancy Tracy, DO
[2022-05-21] MEDS: Lactated Ringers 1,000 ML 15 ML IV (13:50)
[2022-05-21 13:54] VITALS: BP 113/54; PULSE 117; RESP 15; TEMP 36.7; O2SAT 100; BMI 41.6
[2022-05-21] MEDS: Doxycycline 100 MG CAPSULE PO (14:09)
[2022-05-21 14:15] LABS: Hematocrit 35.5 % (37-47); Hemoglobin 11.3 g/dL (12.0-15.0); Mean Corp Hgb Conc 31.8 g/dL (32-36); Mean Corpuscular Hgb 26.6 pg (27.0-32.0); Mean Corpuscular Volume 83.5 fL (81-99); Mean Platelet Vol. 10.7 fl (6.2-12.0); Platelet Count 352 K/mm3 (150-450); RBC Distribution Width CV 15.8 % (11.6-14.6); RBC Distribution Width SD 47.9 fl (35.1-43.9); Red Blood Count 4.25 M/mm3 (4.2-5.4); White Blood Count 11.7 K/mm3 (4.4-11.0)
[2022-05-21 14:27] LABS: Partial Thromboplast Time 28.4 Seconds (24.1-36.2); Prothrombin Time (Protime)PT. 13.2 SECONDS (11.7-14.9)
[2022-05-21 14:32] LABS: AST(SGOT) 10 U/L (15-37); Alanine Aminotransfer ALT/SGPT 20 U/L (13-56); Albumin, Serum 3.7 g/dL (3.2-5.0); Alkaline Phosphatase 75 U/L (45-117); Bilirubin, Direct 0.08 mg/dL (0.00-0.30); Globulin 4.2 g/dL (2.2-4.2); Protein, Total 7.9 g/dL (6.4-8.2)
--- NOTE | 2022-05-21 15:05 | POC_PTH ---
PATIENT: MANA MENDOZA LOC: [facility] [place][id number] AGE/SX: 32/F ROOM: RE05/21/[address]: Dr. Nancy Tracy DO : 1990 BED: DIS: 05/21/2022 SPEC #: [id number] RECD: 05/22/22 08:32 STATUS: CARMEN DANE #: [id number] HERMILO: 05/21/22 15:[address]: Nancy Tracy DEPT: SURGICAL PATHOLOGY RECD BY: Marii Garcia ENTERED: 05/22/22 11:50 SP TYPE: PROD CONC OTHR DR: ZAIAR Woodson Tissues: A - Product of conception, NOS B - Fallopian tube Procedures: Surgery Specimen Level II Surgery Specimen Level IV HEADER OPERATION: Dilation and curettage, laparoscopic bilateral PRE-OP DIAGNOSIS: Missed , contraceptive management TISSUE SUBMITTED: A. Products of conception, B. Bilateral fallopian tubes MICROSCOPIC DIAGNOSIS A. Products of conception: Decidual, gestational endometrium and rare immature chorionic villi (products of conception), clinically missed . B. Bilateral fallopian tubes, salpingectomy: Bilateral fallopian tubes, no pathologic diagnosis. /ZENOBIA 05/23/22 MICROSCOPIC DESCRIPTION Slides are reviewed. GROSS DESCRIPTION A. Received is one container labeled with the patient name and designated products of conception. The specimen consists of multiple irregular fragments of light hemorrhagic soft tissue that in aggregate measure 5 x 5 x 1 cm. Stevedoring Supervisor tissue is submitted in three cassettes. / ZENOBIA:joy 05/22/2022 Rest of the specimen is submitted in 7 more cassettes, 4 -10. SJ:joy 05/23/2022 B. Received in fixative is one container labeled with the patient's name and designated bilateral fallopian tubes. Received in fixative is one container labeled with the patient's name and designated bilateral fallopian tubes. The specimen consists of bilateral fallopian tubes including fimbrial ends each measuring 6.5 m in length and 0.6 cm in diameter. The fallopian tubes are not identified as right or left. Sections reveal unremarkable cut surfaces. Stevedoring Supervisor sections are submitted in two cassettes with each cassette containing one fallopian tube. / ZENOBIA:joy 05/22/2022 TC:5 CPT: 60667 x2, 52716
--- NOTE | 2022-05-21 15:17 | DCINST_ITS ---
Discharge Instructions Diet Discharge Diet: No restrictions Activity Discharge Activity: Return to Normal Activity, May Shower and May Take a Tub Bath (after 1 week) Return to work on:: 05/13/22 May shower in (days): 1 May resume sexual activity in: 1-2 weeks Weight Bearing Status: Weight bearing as tolerated Lifting Restrictions: none Dressing / Incision Call your doctor if your incision/area has: Sudden Increased Bleeding, Increased Pain/ Swelling, Increased Redness, Foul Smelling Discharge and Swelling at the incision site Call your doctor if you observe: Fever of 101 or Higher, Using more than 1 pad per hour, Shortness of breath and Uncontrolled pain Suture Line Care: Avoid Pulling/Pushing and Avoid Pinching/Bending Remove Dressing in: 1 week Cleanse incision/area with: Keep Dressing Clean & Dry Follow Up Care Please Follow Up With: Nancy Tracy DO When: Call [phone] to schedule appointment. Test Results: Test results from this visit will be discussed in further detail at your follow- up appointment, if applicable. Discharge Plan Admission Attending Provider: Nancy Tracy Primary Care Provider: Le Miller Discharge Orders/Prescriptions Prescriptions: No Action aspirin 81 mg tablet,chewable 81 mg PO DAILY D-Biazge-K1-B12 3-35-2 mg tablet 1 tab PO DAILY Referrals / Follow Up: Le Miller PA [Primary Care Provider] - Disposition Disposition (needs filled in before D/C Order can be placed): Home, Self Care
--- NOTE | 2022-05-21 15:21 | OP.PCM_ITS ---
Operative Report Date of Procedure: 05/21/22 preoperative diagnosis: incomplete and desires permanent sterilization postoperative diagnosis: incomplete and desires permanent sterilization Procedure: suction dilation and curettage and laparoscopic bilateral salpingectomy Surgeon: Dr. Nancy Tracy DO Business Support Administrator: STEVIE Judd Anesthesia: General Endotracheal intubation EBL: 50cc Urine to kick bucket drained with a red rubber catheter Complications: none Implanted material: none Details: Patient was prepped and draped in a normal sterile fashion under MAC anesthesia. A weighted speculum was placed in the vagina and the anterior lip of the cervix was grasped with a single-tooth tenaculum. A paracervical block was placed with 1% lidocaine. Cervix was progressively dilated to allow passage of a size 7 curved suction curettage. The suction device was turned on and removed contents of the uterus. Next, a sharp Curettage was performed until a gritty texture was noted. All instruments were removed from the vagina and excellent hemostasis was noted. Gloves were changed. Attention was then paid to the abdominal portion of the procedure and the umbilicus was elevated with towel clamps and injected with Marcaine and after a 5 mm incision was made and 5 mm optical trocar was placed under direct visualization into the Abdomen. CO2 gas was used to insufflate the abdomen. A left lower quadrant 5 mm port and a 5 mm port suprapubically were placed under direct visualization. Uterus was well visualized and bilateral fallopian tubes identified and bilateral tubes were elevated and transecting across the mesosalpinx and the attachment to the uterine corpus bilaterally the tubes were removed without complication. This was performed using the ligasure device. Excellent hemostasis was noted. Fallopian tubes were removed through the lower port sites without complication. Liver and upper abdomen were visualized notably within normal limits and no other gross abnormalities were seen in the abdomen. All instruments removed from the abdomen after gas was desufflated. Port sites were closed with 3-0 Monocryl Steri's and op sites were applied. All instruments removed from the vagina and patient was awoken and taken recovery in stable condition. Multi Select Codes Urinary/Genital Urinary/Genital CPT Codes: 66657 Laproscopic BS/O and Other Procedure See Report (suction dilation and curettage )
[2022-05-21] MEDS: Methylergonovine 0.2 MG/ML Ampul IM (15:55)
[2022-05-21] MEDS: Bupivacaine 0.25% 30 ML Vial (16:05)
[2022-05-21 16:30] VITALS: BP 113/54; BP 124/83; PULSE 103; RESP 20; TEMP 36.8; O2SAT 96
[2022-05-21 16:45] VITALS: BP 113/54; BP 127/86; PULSE 97; RESP 18; O2SAT 97
[2022-05-21 17:04] VITALS: BP 113/54; BP 131/86; PULSE 93; RESP 18; TEMP 36.6; O2SAT 98
[2022-05-21] MEDS: HYDROcodone Bitartrate/Apap 5/325 Tablet PO (17:30)
[2022-05-21 17:43] VITALS: BP 101/70; BP 113/54; PULSE 97; RESP 16; O2SAT 96
== END 2022-05-21 18:15 | disposition home or self-care (01) ==
LOC: SDC 13:30 → AC 13:31
PROVIDERS: Anesthesiology; PCP Physician Assistant; Referring Provider Obstetrics & Gynecology; Visit Provider Obstetrics & Gynecology
PROC: (CPT 58661; principal; 2022-05-21 14:50)
PROC: (CPT 58661; 2022-05-21 14:50)
DX: Z30.2 Encounter for sterilization (principal); O02.1 Missed abortion; Z79.82 Long term (current) use of aspirin; Z86.16 Personal history of COVID-19
CPT/HCPCS: 58661; 59820; 00840; 80076; 85027; 85610; 85730; 86850; 86900; 86901; 88302; 88305; J7120; J2405

== ENCOUNTER → 2022-06-03 | Outpatient (CLI) | payer SELFPAY ==
[2022-06-03 13:36] LABS: Thyroid Stim Hormone (TSH) 2.02 uIU/mL (0.358-3.74)
[2022-06-03 13:46] LABS: Hemoglobin A1c 5.7 % (3.8-5.6)
[2022-06-05 04:07] LABS: Dilute Prothrombin Time (dPT) 35.1 sec (0.0-47.6); Dilute Russell Viper Venom 38.1 sec (0.0-47.0); PTT-LA 34.9 sec (0.0-51.9); dPT Confirm Ratio 1.05 Ratio (0.00-1.34)
[2022-06-05 12:11] LABS: Interpretation Comment: (.)
== END | disposition home or self-care (01) ==
LOC: LAB 12:16
PROVIDERS: PCP Physician Assistant; Referring Provider Obstetrics & Gynecology; Visit Provider Obstetrics & Gynecology
DX: O09.299 Supervision of pregnancy with other poor reproductive or obstetric history, unspecified trimester (principal); O20.0 Threatened abortion; N96 Recurrent pregnancy loss
CPT/HCPCS: 36415; 83036; 84443

== ENCOUNTER 2025-03-11 18:58 | Emergency (ER) | payer SELFPAY ==
[2025-03-11 19:00] VITALS: BP 134/94; PULSE 129; RESP 16; TEMP 36.8; O2SAT 98; BMI 43.6
--- NOTE | 2025-03-11 20:24 | EDS_ITS ---
HPI HPI - Female History of Present Illness Chief Complaint: Female C/O Narrative Narrative: 34-year-old female past medical history of bilateral salpingectomy [address] Vences presents with concern for ectopic . She relates history that she had normal menses previously. Her last normal menstrual period was February 04. She is now 4 days late. She states she took a home test which was positive. She has not had any vaginal bleeding, and she denies any pelvic pain or other symptoms. If she is , this would make her a G9, P3. PFSH PFSH Medical History Wears glasses MTHFR mutation Easy bruising Non-smoker Shortness of breath on exertion Vaginal delivery COVID-19 Home Medications ?Medication ?Instructions ?Recorded ?Last Taken ?Type NK 03/11/25 Unknown History Allergy/AdvReac Type Severity Reaction Status Date / Time No Known Allergies Allergy Verified 03/11/25 19:04 Family History Grandfather Cancer Grandmother Cancer Surgical History S/P dilation and curettage (~05/21/22) H/O tubal ligation History of surgery S/P dilation and curettage Social History adopted: No household members: spouse and children housing: house number of children: 3 current occupational status: unemployed pets and animals: No history of recent travel: Yes ([place] ) out of state: Yes out of country: No sexually active: Yes Smoking Status: Never smoker alcohol intake: never substance use type: does not use well-balanced diet: daily or most days caffeine: No eating out: rarely or never during the past year weight has: remained stable what type of physical activity do you participate in: none jono/judaism: Spiritism seatbelt use: always do you feel safe at home: Yes additional social history: -Caesar [place] ROS ROS ED ROS Narrative Review of systems is positive for positive home test. 4 days late for start of menses. Denies any pelvic pain, vaginal bleeding, fevers, chills, or other symptoms. EXAM Physical Exam Narrative Exam Narrative: Afebrile. Vital signs noted. Nontoxic-appearing. Cardiovascular examination reveals mild tachycardia. Lungs clear to auscultation bilaterally. Abdomen soft and nontender without guarding or rebound. Neurological examination nonfocal, nonlateralizing. Awake, alert, interactive, appropriate. Const Vital Signs: 03/11/25 19:00 Temperature 98.2 F Temperature Source Oral Pulse Rate 129 H Respiratory Rate 16 Blood Pressure 134/94 H Blood Pressure Mean 107 Pulse Ox 98 MDM MDM MDM Narrative Medical decision making narrative: Differential diagnosis includes but not limited to ectopic versus intrauterine versus false positive home test. Initially, CBC, CMP, and serum test was obtained. Should her screening/serum p regnancy be positive, I would add a beta hCG as well as considering an ultrasound. I reviewed her laboratory work and she has slightly elevated white count of 11.4 which I think is nonspecific, hemoglobin normal at 12.6 with hematocrit 38.6, platelet count normal at 330. CMP is remarkable for creatinine of 0.57 and glucose 108 but otherwise grossly unremarkable with normal LFTs. Of significance, serum test is negative. Patient was reassured. She may have had a false positive on her home test. As I am not concerned for ectopic , I feel she can be discharged to follow-up with her WELDER/FITTER should she not experience her menses within the next week. Return instructions to the emergency department were reviewed. Disposition is discharged home in stable condition. History & Record Review Discussion w/independent historian: Patient Lab Data Attestation: I reviewed the patient's lab results. Labs: Laboratory Results - last 24 hr 03/11/25 20:35 WBC 11.4 H RBC 4.70 Hgb 12.6 Hct 38.6 MCV 82.1 MCH 26.8 L MCHC 32.6 RDW Std Deviation 42.8 RDW Coeff of Gisselle 14.4 Plt Count 330 MPV 11.0 Immature Gran % (Auto) 0.400 Neut % (Auto) 72.7 H Lymph % (Auto) 19.6 [place] % (Auto) 5.9 Eos % (Auto) 0.9 Baso % (Auto) 0.5 Absolute Neuts (auto) 8.3 H Absolute Lymphs (auto) 2.23 Nucleated RBC % 0 Sodium 140 Potassium 4.2 Chloride 105 Carbon Dioxide 25.1 Anion Gap 10 BUN 10 Creatinine 0.57 L Estim Creat Clear Calc 157.90 Est GFR (MDRD) Non-Af 124 BUN/Creatinine Ratio 18.0 Glucose 108 H Calcium 9.4 Total Bilirubin 0.25 AST 16 ALT 11 Alkaline Phosphatase 74 Total Protein 7.7 Albumin 4.2 Globulin 3.5 Albumin/Globulin Ratio 1.2 Serum , Qual NEGATIVE Discharge Plan Triage Chief Complaint: Female C/O ED Provider: John Fuentes Dx/Rx/DC Orders Clinical Impression: Menstrual period late, Encounter for medical screening examination Instructions: Understanding Uterine Bleeding, ED Screening Exam Medical Nonurgent Prescriptions: No Action NK Primary Care Provider: Le Miller Referrals: Nancy Tracy DO [Med Staff - Active Staff] - 1 Week if not improving Le Miller PA [Primary Care Provider] - Activity Restrictions/Additional Instructions: Your serum test was negative today. You may have had a false positive home test. Follow-up with your WELDER/FITTER within 1 week if you do not begin your menses. You may require another test. Print Language: Somali Disposition Disposition: Home, Self Care
[2025-03-11 20:50] LABS: Internal QC Validated? YES +Cl - CLEAR BKGD; Pregnancy, Serum, hCG Quali. NEGATIVE Negative; Record Kit Lot#, Serum Preg. 947241
[2025-03-11 20:54] LABS: Hematocrit 38.6 % (37-47); Hemoglobin 12.6 g/dL (12.0-15.0); Immature Granulocytes Count 0.050 X10^3/uL (0.0-0.0); Mean Corp Hgb Conc 32.6 g/dL (32-36); Mean Corpuscular Volume 82.1 fL (81-99); Mean Platelet Vol. 11.0 fl (6.2-12.0); NRBC Flagged by Analyzer 0 % (0-5); Platelet Count 330 K/mm3 (150-450); RBC Distribution Width CV 14.4 % (11.6-14.6); RBC Distribution Width SD 42.8 fl (35.1-43.9); Red Blood Count 4.70 M/mm3 (4.2-5.4); White Blood Count 11.4 K/mm3 (4.4-11.0)
[2025-03-11 20:57] LABS: AST(SGOT) 16 U/L (<=31); Alanine Aminotransfer ALT/SGPT 11 U/L (<=34); Albumin, Serum 4.2 g/dL (3.5-5.0); Alkaline Phosphatase 74 U/L (35-104); Anion Gap 10 (5-15); BUN 10 mg/dL (4-19); BUN/Creat Ratio 18.0 RATIO (10-20); Calcium,Total 9.4 mg/dL (7.6-11.0); Carbon Dioxide 25.1 mmol/L (21.0-32.0); Chloride 105 mmol/L (98-108); Estimated Creatinine Clearance 157.90 ml/min (50-250); Globulin 3.5 g/dL (2.2-4.2); Glucose 108 mg/dL (70-99); Potassium 4.2 mmol/L (3.3-5.1)
--- OUTSIDE RECORDS SUMMARY | 2025-03-11 20:59 | XMS RPT_ITS | CCD ---
Author Organization [facility] CliniSymi Care Team Providers Care Specimen Collector Name Role Phone CAROLE BULL Admitting Unavailable CAROLE BULL Attending Unavailable CAROLE, BULL Primary Care Unavailable DAPHNE COLUNGA MD Consulting Unavailable PROVIDER, UNKNOWN Consulting Unavailable PROVIDER, UNKNOWN Consulting Unavailable PROVIDER, UNKNOWN Consulting Unavailable Miller ZAIRA MENESES Le Primary Care Provider [phone] ZAIRA Landers Le Referring Provider Dr. Jill Ocampo Attending Provider Dr. Nancy Tracy Attending Provider [phone] Dr. Nancy Tracy Other Provider Miller, Le Referring Unavailable Miller, Le Primary Care Unavailable Jill Ocampo Attending Unavailable Miller, Le Referring Unavailable VandNancy Shukla Attending Unavailabl e Miller, Le Primary Care Unavailable VandNancy Shukla Admitting Unavailabl e Miller, Le Primary Care Unavailable Nancy Tracy Attending Unavailabl e Vande VelNancy hernandez Consulting Unavailabl e Vande VeldeNancy Consulting Unavailabl e Vande VeldeNancy Attending Unavailabl e Miller, Le Primary Care Unavailable Miller, Le Referring Unavailable Miller, Le Primary Care Unavailable Jill Ocampo Attending Unavailable Vande VelNancy hernandez Attending Unavailabl e Miller, Le Primary Care Unavailable Miller, Le Referring Unavailable Vande VelNancy hernandez Attending Unavailabl e Miller, Le Primary Care Unavailable Miller, El Referring Unavailable Miller, Le Primary Care Unavailable Jill Ocampo Attending Unavailable Jill Ocampo Referring Unavailable Miller, Le Referring Unavailable Miller, Le Primary Care Unavailable Vande Velde, Nancy Attending Unavailabl e Vande Veldavid, Nancy Referring Unavailabl e Miller, Le Primary Care Unavailable Vande Jonathan, Nancy Attending Unavailabl e Miller, Le Primary Care Unavailable Jill Ocampo Attending Unavailable Jill Ocampo Referring Unavailable Miller, Le Primary Care Unavailable Vande Veldavid, Nancy Attending Unavailabl e Vande Velde, Nancy Attending Unavailabl e Miller, Le Primary Care Unavailable Vande Velde, Nancy Referring Unavailabl e Miller, Le Primary Care Unavailable Vande Jonathan, Nancy Attending Unavailabl e Vande VeldeNancy Admitting Unavailabl e Miller, Le Primary Care Unavailable Vande Jonathan, Nancy Attending Unavailabl e Jill Ocampo Referring Unavailable Miller, Le Referring Unavailable Miller, Le Primary Care Unavailable Jill Ocampo Attending Unavailable Miller, Le Referring Unavailable Jill Ocampo Attending Unavailable Miller, Le Primary Care Unavailable Miller, Le Primary Care Unavailable Miller, Le Referring Unavailable Vande Velde, Nancy Attending Unavailabl e Medications Completed/Discontinued Medications Medication Drug Class(es) Dates Sig (Normalized) Sig (Original) acetaminophen 80 mg chewable tablet (3 sources) Start: 05-01-2022 End: 05-06-2022 take 81 mg by mouth once daily Acetaminophen Discontinued 81 MG PO DAILY April 30, 2022 11:00pm May 06, 2022 8:42am acetaminophen 325 mg / oxyCODONE hydrochloride 5 mg oral tablet (3 sources) Opioid Agonist Start: 05-21-2022 End: 06-03-2022 take 1 tablet by mouth every four hours Oxycodone-Acetamino phen (Percocet) 5-325 mg tablet Discontinued 1 TABLET PO Q4H 23 01May 21, 2022 June 03, 2022 12:00pm aspirin 81 mg chewable tablet (6 sources) Platelet Aggregation Inhibitor, Nonsteroidal Anti-inflammatory Drug Start: 05-06-2022 End: 05-21-2022 take 81 mg by mouth once daily Aspirin Discontinued 81 MG PO DAILY May 05, 2022 11:00pm May 21, 2022 3:19pm Start: 01-01-2021 End: 08-02-2021 take 81 mg by mouth once daily Aspirin Discontinued 81 MG PO DAILY December 31, 2020 11:00pm August 02, 2021 8:28pm ibuprofen 800 mg oral tablet (3 sources) Nonsteroidal Anti-inflammatory Drug Start: 08-02-2021 End: 09-14-2021 take 800 mg by mouth every eight hours Ibuprofen Discontinued 800 MG PO Q8H 30 7 August 02, 2021 12:00am September 14, 2021 3:08pm levomefolate (3 sources) Start: 01-01-2021 End: 09-14-2021 take 1 tablet by mouth once daily Levomefolate Calcium (L-Methylfolate) 7.5 mg tablet Discontinued 7.5 MG PO DAILY December 31, 2020 11:00pm September 14, 2021 3:31pm Mecobal-Levomefola t Ca-B6 Phos (B-Ibtxwe-G3-B12) 3-35-2 mg tablet (6 sources) Start: 05-17-2022 End: 06-03-2022 take 1 tablet by mouth once daily Mecobal-Levomefol at Ca-B6 Phos (N-Cslosx-E5-B12) 3-35-2 mg tablet Discontinued 1 TABLET PO DAILY May 17, 2022 3:02pm June 03, 2022 12:00pm Start: 05-17-2022 take 1 tablet by nessa th once daily Mecobal-Levomefolat Ca-B6 Phos (P-Nfzpxy-D4-B12) 3-35-2 mg tablet Active 1 TABLET PO DAILY May 17, 2022 3:02pm Start: 12-10-2021 End: 05-17-2022 take 1 tablet by mouth once daily Mecobal-Levomefolat Ca-B6 Phos (B-Jmnlda-S7-B12) 3-35-2 mg tablet Discontinued 1 TABLET PO DAILY December 09, 2021 11:00pm May 17, 2022 3:02pm miSOPROStol 0.2 mg oral tablet (3 sources) Prostaglandin E1 Analog Start: 05-09-2022 End: 05-16-2022 take 4 tablets by mouth once Misoprostol (Cytotec) 200 mcg tablet Discontinued 800 MCG PO .complex 4 May 08, 2022 11:00pm May 16, 2022 10:23am 4 tablets vaginally or orally once. naproxen 250 mg oral tablet (3 sources) Nonsteroidal Anti-inflammatory Drug Start: 05-21-2022 End: 06-03-2022 take 500 mg by mouth every eight hours as needed Naproxen Discontinued 500 MG PO EVERY 8 HOURS NEEDED May 21, 2022 12:00am June 03, 2022 12:00pm ondansetron 4 mg oral tablet (3 sources) Serotonin-3 Receptor Antagonist Start: 01-17-2021 End: 08-02-2021 take 4 mg by mouth every eight hours Ondansetron Hcl Discontinued 4 MG PO Q8H January 16, 2021 11:00pm August 02, 2021 8:28pm Problems Active Problems Problem Classification Problem Date Documented Date Episodic/Chronic Contraceptive and procreative management (8 sources) Patient encounter status; Translations: [Encounter for contraceptive management, unspecified] Onset: 05-17-20 Episodic Hemorrhage during ; abruptio placenta; placenta previa (7 sources) Threatened miscarriage; Translations: [Threatened ] Onset: 05-09-20 Episodic Other aftercare (2 sources) Encounter for follow-up examination after completed treatment for conditions other than malignant neoplasm; Translations: [Follow-up examination, following surgery, unspecified] Onset: 06-03-20 Episodic Other complications of (3 sources) Maternal obesity complicating , childbirth and the puerperium, antepartum; Translations: [Obesity complicating , unspecified trimester] Chronic Other complications of (4 sources) Obesity complicating , unspecified trimester; Translations: [Obesity complicating , childbirth, or the puerperium, unspecified as to episode of care or not applicable] Onset: 05-06-20 Chronic Other complications of (3 sources) Missed miscarriage; Translations: [Missed ] Episodic Other complications of (3 sources) H/O: miscarriage; Translations: [Supervision of with other poor reproductive or obstetric history, unspecified trimester] Episodic Other complications of (3 sources) High risk ; Translations: [Supervision of high risk , unspecified, unspecified trimester] Episodic Other complications of (3 sources) Inherited disorder of folate metabolism; Translations: [Endocrine, nutritional and metabolic diseases complicating , unspecified trimester] Episodic Other complications of (7 sources) Supervision of with other poor reproductive or obstetric history, unspecified trimester; Translations: [Supervision of high-risk with history of ] Onset: 06-13-20 Episodic Other complications of (3 sources) Endocrine, nutritional and metabolic diseases complicating , unspecified trimester; Translations: [Other current conditions classifiable elsewhere of mother, unspecified as to episode of care or not applicable] Episodic Other complications of (3 sources) Supervision of high risk , unspecified, unspecified trimester; Translations: [Supervision of unspecified high-risk ] Episodic Other complications of (7 sources) Missed ; Translations: [Missed ] Onset: 05-17-20 Episodic Other female genital disorders (3 sources) History of past delivery; Translations: [Status post vaginal delivery] Episodic Other female genital disorders (3 sources) Recurrent miscarriage; Translations: [Recurrent loss] Episodic Other nutritional; endocrine; and metabolic disorders (2 sources) Methylenetetrahydrofolate reductase deficiency; 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] Onset: 09-06-19 Chronic Residual codes; unclassified (3 sources) Influenza vaccination declined; Translations: [Immunization not carried out because of patient refusal] Episodic Residual codes; unclassified (1 source) 8 weeks gestation of ; Translations: [8 weeks gestation of ] Onset: 05-06-20 Episodic Viral infection (3 sources) Disease caused by 2019-nCoV; Translations: [COVID-19] Episodic Viral infection (2 sources) COVID-19; Translations: [U07.1 - COVID-19] Onset: 08-08-19 Past or Other Problems Problem Classification Problem Date Documented Date Episodic/Chronic Other complications of (2 sources) Endocrine, nutritional and metabolic diseases complicating , first trimester; Translations: [O99.281 - Endocrine, nutritional and metabolic diseases complicating , first trimester] Onset: 09-05-2021 Episodic Other complications of (1 source) Other viral diseases complicating , third trimester; Translations: [O98.513 - Other viral diseases complicating , third trimester] Onset: 06-27-2021 Episodic Other female genital disorders (2 sources) Recurrent loss; Translations: [N96 - Recurrent loss] Onset: 08-08-2021 Episodic Other and delivery including normal (18 sources) Vaginal delivery; Translations: [Encounter for full-term uncomplicated delivery] Onset: 09-05-2021 Episodic Other screening for suspected conditions (not mental disorders or infectious disease) (1 source) Encounter for screening for malignant neoplasm of cervix; Translations: [Z12.4 - Encounter for screening for malignant neoplasm of cervix] Onset: 09-21-2021 Episodic Residual codes; unclassified (2 sources) 38 weeks gestation of ; Translations: [Z3A.38 - 38 weeks gestation of ] Onset: 08-08-2021 Episodic Residual codes; unclassified (1 source) 37 weeks gestation of ; Translations: [Z3A.37 - 37 weeks gestation of ] Onset: 07-17-2021 Episodic Residual codes; unclassified (1 source) 34 weeks gestation of ; Translations: [Z3A.34 - 34 weeks gestation of ] Onset: 06-27-2021 Episodic Results Test Name Value Interpretation Reference Range Facility Lupus Anticoagulant Compon 1 08-05-2021 Interpretation Comment: Normal . [facility] Comment on above: Result Comment: No l upus anticoagulant was detected. Performed at: [address] [id number] Passenger [place]: Kellen Still MD, Phone: [phone] Performed By: #### L 4500.0100, L501.9520, L501.9985 ####[facility] [address] [place], [address] aPTT Coag (Bld) [Time] 34.9 s Normal 0.0-51.9 [facility] Comment on above: Performed By: #### L 4500.0100, L501.9520, L501.9985 ####[facility] [address] [place], [address] DILUTE PT (dPT) 35.1 sec Normal 0.0-47.6 [facility] Comment on above: Performed By: #### L 4500.0100, L501.9520, L501.9985 ####[facility] [address] [place], [address] dPT Conf. Ratio 1.05 Ratio Normal 0.00-1.34 [facility] Comment on above: Performed By: #### L 4500.0100, L501.9520, L501.9985 ####[facility] [address] [place], [address] DRVVT 38.1 sec Normal 0.0-47.0 [facility] Comment on above: Performed By: #### L 4500.0100, L501.9520, L501.9985 ####[facility] [address] [place], [address] THROMBIN TIME 17.0 sec Normal 0.0-23.0 [facility] Comment on above: Performed By: #### L 4500.0100, L501.9520, L501.9985 ####[facility] [address] [place], [address] Dilute Gus's viper venom timeon 06-03-2022 dRVVT Coag (PPP) [Time] 38.1 s 0.0-47.0 [facility] Work Phone: Hemoglobin A1con 06-03-2022 HbA1c (Bld) [Mass fraction] 5.7 % High 3.8-5.6 [facility] Comment on above: Result Comment: Norm al < 5.7 % Prediabetic 5.7 - 6.4 % Diabetic >or= 6.5 % Please note range changes. Performed By: #### L 4500.0100, L501.9520, L501.9985 ####[facility] [address] [place], [place], [id number] No Panel Informationon 06-03 Thyroid Stimulating Hormone (TSH) 2.02 uIU/mL 0.358-3.74 [facility] Work Phone: Explosive Technician Office Visit Reporton 06-03-2022 Explosive Technician Office Visit Report [facility] [address] [place] [address] OFFICE VISIT Date of Service: 06/03/22 MR#: [id number] Acct: [id number] Name: MANA NARANJO Rep #: [id number] : 1990 Provider: Dr. Jill hager MD Age/Sex: 32/F [place] [facility] [place]: Signed Intake Vital Signs 05/21/22 13:54 06/03/22 12:00 06/03/22 12:01 Height 5 ft 1 in 5 ft 1 in 5 ft 1 in Weight: 221 lb BMI 41.7 BP 111/78 Intake Visit Reasons: 1w post op D C SAB Chief Complaint: 2w post op D C Medical Doctor Nuclear Medicine Required: No Is patient in pain?: No Allergies No Known Allergies Allergy (Verified 05/21/22 13:54) Is last menstrual period known: No Post menopausal: No Patient : No : No PFSH Medical History COVID-19 Easy bruising MTHFR mutation Non-smoker Shortness of breath on exertion Vaginal delivery Wears glasses Surgical History (Updated 06/03/22 @ 12:03 by Trini Negron) H/O tubal ligation History of surgery S/P dilation and curettage Family History Grandfather Cancer Grandmother Cancer Social History adopted: No household members: spouse and children housing: house number of children: 3 current occupational status: unemployed pets and animals: No history of recent travel: Yes ([place] ) out of state: Yes out of country: No sexually active: Yes Smoking Status: Never smoker alcohol intake: never substance use type: does not use well-balanced diet: daily or most days caffeine: No eating out: rarely or never during the past year weight has: remained stable what type of physical activity do you participate in: none jono/sabianist: [employer] seatbelt use: always do you feel safe at home: Yes additional social history: -[place] HPI 1w post op D C SAB Details: MANA NARANJO is a 32 year old who presents for fu visit doing well recovered. History 8 Elective abortions Hx Para 3 Spontaneous abortions 5 Hx # Term Pregnancies Ectopic pregnancies Hx # Pregnancies Multiple births # of living children 3 Past Pregnancies Del. Date Name GA/Weeks Outcome Route Bth Weight Gen Labor Lgth Anesthesia Del Locatn Provider FOB Unknown IOL 04/12/10 Kennedy 41 live - full term 8lbs 1oz Male epidural [facility] Dr. Sayda Maynard 01/31/13 Paul 41 live - full term 8lbs 3oz Male none [facility] Reji Maynard 08/02/21 Elliana 38 live - full term 6lbs 4oz Female [facility] Dr Tyshawn Chaudhari Delivery Date: 04/12/10 Last Updated by: Alie Mack No issues during or delivery Delivery Date: 01/31/13 Last Updated by: Alie Mack No issues during or delivery. ROS Const Constitutional: Reports system reviewed and no additional complaints, except as documented GI GI: Denies abdominal pain, cramping, nausea or vomiting : Denies pelvic pain, urinary frequency, urinary incontinence, urinary urgency, vaginal discharge, vaginal dryness or vaginal odor Exam Const General: cooperative, healthy appearing, comfortable and no acute distress GI Inspection: normal to inspection Palpation: soft and nontender Other: Incisions: C/D/I Coding Level of Care Code No Charge Diagnoses Postoperative examination Z09 Assessment and Plan Assessment and Plan (1) Postoperative examination: Plan fu annually 06/03/22 1212 Date Jill Armstrong Signature: Date (if applicable) CC: Normal [facility] Thin prep Papanicolaou smear with manual screeningon 11-28-2022 Thin prep Papanicolaou smear with manual screening 35.1 sec 0.0-47.6 [facility] Work Phone: Thin prep Papanicolaou smear with manual screening 1.05 Ratio 0.00-1.34 [facility] Work Phone: Thin prep Papanicolaou smear with manual screening 34.9 sec 0.0-51.9 [facility] Work Phone: Thin prep Papanicolaou smear with manual screening Comment: . [facility] Work Phone: Comment on above: No lupus anticoagula nt was detected.Performed at: - [address] [id number] Director: Kellen Still MD, Phone: [phone] Thrombin time in platelet po or plasmaon 06-03-2022 Thrombin time Coag (PPP) [Time] 17.0 sec 0.0-23.0 [facility] Work Phone: Thyroid Stim Hormone (TSH)on 06-03-2022 TSH 2.02 uIU/mL Normal 0.358-3.74 [facility] Comment on above: Performed By: #### L 4500.0100, L501.9520, L501.9985 ####[facility] [address] [place], [place], [id number] Whole blood hemoglobin A1c/t otal hemoglobin ratio (mass fraction)on 06-03-2022 HbA1c (Bld) [Mass fraction] 5.7 % 3.8-5.6 [facility] Work Phone: Comment on above: Normal < 5.7 % Predi abetic 5.7 - 6.4 % Diabetic >or= 6.5 % Please note range changes. Basophil percentageon 2021 Bilirubin [Mass/Vol] 0.30 mg/dL 0.20-1.00 [facility] Work Phone: Comment on above: For patients on eltr ombopag therapy, use of Dimension [place] TBIL is not recommended. Protein [Mass/Vol] 7.9 g/dL 6.4-8.2 [facility] Work Phone: WBC (Bld) [#/Vol] 11.7 10*3/uL 4.4-11.[address] [facility] Work Phone: Blood erythrocytes count (nu mber/volume)on 05-21-2022 RBC (Bld) [#/Vol] 4.25 10*6/uL 4.2-5.[address] [facility] Work Phone: Blood hemoglobin measurement (mass/volume)on 05-21-2022 Hemoglobin (Bld) [Mass/Vol] 11.3 g/dL 12.0-15.0 [facility] Work Phone: Blood platelet mean volumeon 05-21-2022 Platelet mean volume (Bld) [Entitic vol] 10.7 fL 6.2-12.0 [facility] Work Phone: CBC-Complete Blood Cnt No Di ffon 05-21-2022 Erythrocyte distribution width (RBC) [Ratio] 15.8 % High 11.6-14.6 [facility] Comment on above: Performed By: #### M 100.3400 #### [facility] Laboratory [address] [place], [address] Hematocrit (Bld) [Volume fraction] 35.5 % Low 37-47 [facility] Comment on above: Performed By: #### M 100.3400 #### [facility] [address] [place], [address] Hemoglobin (Bld) [Mass/Vol] 11.3 g/dL Low 12.0-15.0 [facility] Comment on above: Performed By: #### M 100.3400 #### [facility] [address] [place], [address] MCH (RBC) [Entitic mass] 26.6 pg Low 27.0-32.0 [facility] Comment on above: Performed By: #### M 100.3400 #### [facility] [address] [place], [address] MCHC (RBC) [Mass/Vol] 31.8 g/dL Low 32-36 [facility] Comment on above: Performed By: #### M 100.3400 #### [facility] [address] [place], [address] MCV (RBC) [Entitic vol] 83.5 fL Normal 81-99 [facility] Comment on above: Performed By: #### M 100.3400 #### [facility] [address] [place], [address] Platelet mean volume (Bld) [Entitic vol] 10.7 fL Normal 6.2-12.0 [facility] Comment on above: Performed By: #### M 100.3400 #### [facility] [address] [place], [address] Platelets (Bld) [#/Vol] 352 10*3/uL Normal 150-450 [facility] Comment on above: Performed By: #### M 100.3400 #### [facility] [address] [place], [address] RBC (Bld) [#/Vol] 4.25 10*6/uL Normal 4.2-5.[address] [facility] Comment on above: Performed By: #### M 100.3400 #### [facility] [address] [place], [address] RDW SD 47.9 fl High 35.1-43.9 [facility] Comment on above: Performed By: #### M 100.3400 #### [facility] [address] [place], [address] WBC (Bld) [#/Vol] 11.7 10*3/uL High 4.4-11.[address] [facility] Comment on above: Performed By: #### M 100.3400 #### [facility] [address] [place], [address] Determination of erythrocyte mean corpuscular volume (MCV)on 05-21-2022 MCV (RBC) [Entitic vol] 83.5 fL 81-99 [facility] Work Phone: Direct bilirubinon Bilirubin.direct [Mass/Vol] 0.08 mg/dL 0.00-0.30 [facility] Work Phone: Discharge Instructionon 05-07 Discharge Instruction [facility] Medical Records Department [address] [place] [address] Instructions for Home/Discharge Instructions 05/21/22 1517 MR#: [id number] Acct: [id number] Name: MANA NARANJO Rep #: [id number] : 1990 32 From: Nancy Tracy DO PCP: ZAIRA Woodson Status:REG [facility] Discharge Instructions Diet Discharge Diet: No restrictions Activity Discharge Activity: Return to Normal Activity, May Shower and May Take a Tub Bath (after 1 week) Return to work on:: 05/13/22 May shower in (days): 1 November resume sexual activity in: 1-2 weeks Weight Bearing Status: Weight bearing as tolerated Lifting Restrictions: none Dressing / Incision Call your doctor if your incision/area has: Sudden Increased Bleeding, Increased Pain/ Swelling, Increased Redness, Foul Smelling Discharge and Swelling at the incision site Call your doctor if you observe: Fever of 101 or Higher, Using more than 1 pad per hour, Shortness of breath and Uncontrolled pain Suture Line Care: Avoid Pulling/Pushing and Avoid Pinching/Bending Remove Dressing in: 1 week Cleanse incision/area with: Keep Dressing Clean Dry Follow Up Care Please Follow Up With: Nancy Tracy DO When: Call [phone] to schedule appointment. Test Results: Test results from this visit will be discussed in further detail at your follow-up appointment, if applicable. Discharge Plan Admission Attending Provider: Nancy Tracy Primary Care Provider: Le Miller Discharge Orders/Prescriptions Prescriptions: No Action aspirin 81 mg tablet,chewable 81 mg PO DAILY M-Oycuvx-H4-B12 3-35-2 mg tablet 1 tab PO DAILY Referrals / Follow Up: Le Millre PA [Primary Care Provider] - Disposition Disposition (needs filled in before D/C Order can be placed): Home, Self Care 05/21/22 2598 Nancy Tracy CC: ZAIRA Miller Signed Normal [facility] Hematocrit Auto (Bld) [Volum e fraction]on 05-21-2022 Hematocrit (Bld) [Volume fraction] 35.5 % 37-47 [facility] Work Phone: INR in Blood by Coagulation assayon 05-21-2022 INR Coag (Bld) [Relative time] 1.0 {INR} [facility] Work Phone: [phone] Laboratory - Chemistry and C hemistry - challengeon 05-21-2022 ALP [Catalytic activity/Vol] 75 U/L 45-117 [facility] Work Phone: ALT [Catalytic activity/Vol] 20 U/L 13-56 [facility] Work Phone: Globulin (S) [Mass/Vol] 4.2 g/dL 2.2-4.2 [facility] Work Phone: Laboratory - Coagulationon 07-21-2021 aPTT Coag (Bld) [Time] 28.4 s 24.1-36.2 [facility] Work Phone: PT Coag (PPP) [Time] 13.2 s 11.7-14.9 [facility] Work Phone: Laboratory - Hematology and Cell countson 05-21-2022 Erythrocyte distribution width (RBC) [Entitic vol] 47.9 fL 35.1-43.9 [facility] Work Phone: Erythrocyte distribution width (RBC) [Ratio] 15.8 % 11.6-14.6 [facility] Work Phone: MCH (RBC) [Entitic mass] 26.6 pg 27.0-32.0 [facility] Work Phone: Liver Profileon 05-21-2022 Albumin [Mass/Vol] 3.7 g/dL Normal 3.2-5.0 [facility] Comment on above: Performed By: #### L 300.3900, L500.3400, L300.4310 ####[facility] [address] [place], [address] ALK P 75 U/L Normal 45-117 [facility] Comment on above: Performed By: #### L 300.3900, L500.3400, L300.4310 ####[facility] [address] [place], [address] ALT [Catalytic activity/Vol] 20 U/L Normal 13-56 [facility] Comment on above: Performed By: #### L 300.3900, L500.3400, L300.4310 ####[facility] [address] [place], [address] AST [Catalytic activity/Vol] 10 U/L Low 15-37 [facility] Comment on above: Performed By: #### L 300.3900, L500.3400, L300.4310 ####[facility] [address] [place], [address] Bilirubin [Mass/Vol] 0.30 mg/dL Normal 0.20-1.00 [facility] Comment on above: Result Comment: For patients on eltrombopag therapy, use of Dimension [place] TBIL is not recommended. Performed By: #### L 300.3900, L500.3400, L300.4310 ####[facility] [address] [place], [address] Bilirubin.direct [Mass/Vol] 0.08 mg/dL Normal 0.00-0.30 [facility] Comment on above: Performed By: #### L 300.3900, L500.3400, L300.4310 ####[facility] [address] [place], [address] Globulin (S) [Mass/Vol] 4.2 g/dL Normal 2.2-4.2 [facility] Comment on above: Performed By: #### L 300.3900, L500.3400, L300.4310 ####[facility] [address] [place], [address] T PROT 7.9 g/dL Normal 6.4-8.2 [facility] Comment on above: Performed By: #### L 300.3900, L500.3400, L300.4310 ####[facility] [address] [place], [address] MCHC Auto (RBC) [Mass/Vol]on 05-21-2022 MCHC (RBC) [Mass/Vol] 31.8 g/dL 32-36 [facility] Work Phone: Operative Reporton 2 Operative Report [facility] Medical Records Department [address] [place] [address] Operative Report 05/21/22 1521 MR#: [id number] Acct: [id number] Name: MANA NARANJO Rep #: [id number] : 1990 32 From: Nancy Tracy DO PCP: ZAIRA Woodson Status:[facility] Location: [place] [address] Operative Report Date of Procedure: 05/21/22 preoperative diagnosis: incomplete and desires permanent sterilization postoperative diagnosis: incomplete and desires permanent sterilization Procedure: suction dilation and curettage and laparoscopic bilateral salpingectomy Surgeon: Dr. Nancy Tracy DO Television Cabinet Finisher: STEVIE Judd Anesthesia: General Endotracheal intubation EBL: 50cc Urine to kick bucket drained with a red rubber catheter Complications: none Implanted material: none Details: Patient was prepped and draped in a normal sterile fashion under MAC anesthesia. A weighted speculum was placed in the vagina and the anterior lip of the cervix was grasped with a single-tooth tenaculum. A paracervical block was placed with 1% lidocaine. Cervix was progressively dilated to allow passage of a size 7 curved suction curettage. The suction device was turned on and removed contents of the uterus. Next, a sharp Curettage was performed until a gritty texture was noted. All instruments were removed from the vagina and excellent hemostasis was noted. Gloves were changed. Attention was then paid to the abdominal portion of the procedure and the umbilicus was elevated with towel clamps and injected with Marcaine and after a 5 mm incision was made and 5 mm optical trocar was placed under direct visualization into the Abdomen. CO2 gas was used to insufflate the abdomen. A left lower quadrant 5 mm port and a 5 mm port suprapubically were placed under direct visualization. Uterus was well visualized and bilateral fallopian tubes identified and bilateral tubes were elevated and transecting across the mesosalpinx and the attachment to the uterine corpus bilaterally the tubes were removed without complication. This was performed using the ligasure device. Excellent hemostasis was noted. Fallopian tubes were removed through the lower port sites without complication. Liver and upper abdomen were visualized notably within normal limits and no other gross abnormalities were seen in the abdomen. All instruments removed from the abdomen after gas was desufflated. Port sites were closed with 3-0 Monocryl Steri's and op sites were applied. All instruments removed from the vagina and patient was awoken and taken recovery in stable condition. Multi Select Codes Urinary/Genital Urinary/Genital CPT Codes: 70573 Laproscopic BS/O and Other Procedure See Report (suction dilation and curettage ) 05/21/22 1613 Cosigner Signature (if applicable): CC: ZAIRA Miller; Dr. Nancy Tracy DO Signed Normal [facility] Partial Thromboplast Timeon 05-21-2022 aPTT Coag (Bld) [Time] 28.4 s Normal 24.1-36.2 [facility] Comment on above: Performed By: #### L 300.3900, L500.3400, L300.4310 ####[facility] [address] [place], [place], [address] Platelets bldon 05-21-2022 Platelets (Bld) [#/Vol] 352 10*3/uL 150-450 [facility] Work Phone: Prothrombin Time w/INRon INR Coag (PPP) [Relative time] 1.0 {INR} Normal [facility] Comment on above: Performed By: #### L 300.3900, L500.3400, L300.4310 ####[facility] [address] [place], [place], [address] PT Coag (PPP) [Time] 13.2 s Normal 11.7-14.9 [facility] Comment on above: Performed By: #### L 300.3900, L500.3400, L300.4310 ####[facility] [address] [place], [address] Serum or plasma albumin ilia urement (mass/volume)on 05-21-2022 Albumin [Mass/Vol] 3.7 g/dL 3.2-5.0 [facility] Work Phone: Surgery Specimen Level IIon 05-21-2022 Surgery Specimen Level II -------- Patient Age/Sex Location Account Attending Physician -------- MANA NARANJO 32/ [facility] [id number] Rosalba Menon -------- Specimen: [id number] Received: 05/22/22 Status: CARMEN Owens Num: [id number] Spec Type: PROD CONC Subm Dr: Dr. Nancy Tracy, DO HEADER OPERATION: Dilation and curettage, laparoscopic bilateral PRE-OP DIAGNOSIS: Missed , contraceptive management TISSUE SUBMITTED: A. Products of conception, B. Bilateral fallopian tubes -------- MICROSCOPIC DIAGNOSIS A. Products of conception: Decidual, gestational endometrium and rare immature chorionic villi (products of conception), clinically missed . B. Bilateral fallopian tubes, salpingectomy: Bilateral fallopian tubes, no pathologic diagnosis. / 05/23/22 MICROSCOPIC DESCRIPTION Slides are reviewed. GROSS DESCRIPTION A. Received is one container labeled with the patient name and designated products of conception. The specimen consists of multiple irregular fragments of light hemorrhagic soft tissue that in aggregate measure 5 x 5 x 1 cm. Shaper And Presser tissue is submitted in three cassettes. / : 05/22/2022 Rest of the specimen is submitted in 7 more cassettes, 4 -10. : 05/23/2022 B. Received in fixative is one container labeled with the patient's name and designated bilateral fallopian tubes. Received in fixative is one container labeled with the patient's name and designated bilateral fallopian tubes. The specimen consists of bilateral fallopian tubes including fimbrial ends each measuring 6.5 m in length and 0.6 cm in diameter. The fallopian tubes are not identified as right or left. Sections reveal unremarkable cut surfaces. Shaper And Presser sections are submitted in two cassettes with each cassette containing one fallopian tube. / :joy 05/22/2022 TC:5 CPT: 28365 x2, 66696 -------- Patient Age/Sex Location Account Attending Physician -------- MANA NARANJO 32/ [facility] [id number] Rosalba Menon -------- Signed (signature on file) Dr. Nelson Maynard MD 05/24/22 1314 -------- Normal [facility] Comment on above: Performed By: #### P JEFF ####[facility] [address] [place], [address] Thin prep Papanicolaou smear with manual screeningon 05-21-2022 Thin prep Papanicolaou smear with manual screening 10 U/L 15-37 [facility] Work Phone: Type AND Screen - PAT ONLYon 05-21-2022 Ab SCREEN GEL Negative Normal [facility] Comment on above: Order Comment: Reaso n for Laboratory Test [id number] D C,LAP BSO Performed By: #### M 100.3400 #### [facility] [address] [place], [place], [id number] ABO and Rh group Nom (Bld) Blood group B Rh(D) positive Normal [facility] Comment on above: Order Comment: Reaso n for Laboratory Test [id number] D C,LAP BSO Performed By: #### M 100.3400 #### [facility] [address] [place], [place], [id number] Transvaginal w/Preg USon Transvaginal w/Preg US [facility] Imaging Services [address] [place] [address] Transvaginal w/Preg US MR#: [id number] Acct: [id number] Name: MANA NARANJO Rep #: [id number] : 1990 F 32 From: Jeff Azul MD PCP: ZAIRA Woodson Status: REG CLI Study: Transvaginal w/Preg US Date of Exam: 05/20/22 Exam# [id number] Ordering Dr: Jill Ocampo INDICATION: Scheduled for DTC after miscarriage week prior to examination EXAMINATION: Ultrasound US OB Transvaginal TECHNIQUE: Transvaginal (for optimal evaluation of the adnexa) pelvic ultrasound was performed. Grayscale, spectral waveform, and color flow Doppler evaluation of the adnexa. COMPARISON: None. LMP: [03/06/2022 Beta-hCG: Unknown FINDINGS: UTERUS: 11.7 x 7.9 x 6.6 cm. RIGHT OVARY: 3.6 x 2.3 x 2.1 cm. 1.7 cm anechoic cyst. LEFT OVARY: 3.7 x 2.5 x 1.2 cm. Normal. FREE FLUID: None. INTRAUTERINE GESTATIONAL SAC(s) (size/shape): None. Heterogenous endometrium measures up to 15 mm thickness, internal vascularity demonstrated.. YOLK SAC: Not identified POLE: Not identified HEART MOTION: Not detected. US/Transvaginal w/Preg US IMPRESSION: No intrauterine demonstrated. Abnormal endometrium suspicious for retained products of conception versus endometritis or hematoma. Electronically Signed: Jeff Azul MD at 17:14 EST Reading Location ID and State: [address] [place] [address] Tel , Service support , CC: ZAIRA Miller; Dr. Jill Ocampo MD Supervisor Burling And Joining: Signed Normal [facility] Explosive Technician Office Visit Reporton 05-16-2022 Explosive Technician Office Visit Report [facility] [place] [address] [address] [place] [address] OFFICE VISIT Date of Service: 05/16/22 MR#: [id number] Acct: [id number] Name: MANA NARANJO Rep #: [id number] : 1990 Provider: Dr. Nancy Vargas DO Age/Sex: 32/F [place] [facility] Status: Signed Intake Vital Signs 05/16/22 10:16 05/16/22 10:17 Height 5 ft 5 ft Weight: 223 lb 8 oz BMI 43.6 BP 121/77 H Intake Visit Reasons: FU Miscarriage per Medical Doctor Nuclear Medicine Required: No Is patient in pain?: No Allergies No Known Allergies Allergy (Verified 05/16/22 10:17) Medications levomefolate calcium 7.5 mg tablet (L-Methylfolate) 7.5 mg PO DAILY MTHFR #90 tabs 09/14/21 [Rx Confirmed 05/16/22] mecobalamin-levomefolate calcium-pyridoxal phos 3 mg-35 mg-2 mg tablet (W-Hdkssr-B3-B12) 1 tab PO DAILY 30 days #30 tabs 12/10/21 [Rx Confirmed 05/16/22] vitamins no.163-iron bis-gly 20 mg-folate no.10 1 mg tablet (PNV Tabs 20-1) tab PO 05/01/22 [History Confirmed 05/16/22] aspirin 81 mg chewable tablet 81 mg PO DAILY 05/06/22 [History Confirmed 05/16/22] Post menopausal: No Patient : No : No PFSH Medical History COVID-19 Vaginal delivery Surgical History History of surgery S/P dilation and curettage Family History Grandfather Cancer Grandmother Cancer Social History adopted: No household members: spouse and children housing: house number of children: 3 current occupational status: unemployed pets and animals: No history of recent travel: Yes ([place] ) out of state: Yes out of country: No sexually active: Yes Smoking Status: Never smoker alcohol intake: never substance use type: does not use well-balanced diet: daily or most days caffeine: No eating out: rarely or never during the past year weight has: remained stable what type of physical activity do you participate in: none jono/sabianist: Synagogue seatbelt use: always do you feel safe at home: Yes additional social history: -[place] HPI FU Miscarriage per Details: MANA NARANJO is a 32 year old who presents for follow up miscarriage and 2 doses of cytotec. she is still bleeding but not hemorrhaging. no dizziness or sob. History 8 Elective abortions Hx Para 3 Spontaneous abortions 5 Hx # Term Pregnancies Ectopic pregnancies Hx # Pregnancies Multiple births # of living children 3 Past Pregnancies Del. Date Name GA/Weeks Outcome Route Bth Weight Infant Gen Labor Lgth Anesthesia Del Locatn Provider FOB Unknown IOL 04/12/10 Kennedy 41 live - full term 8lbs 1oz Male epidural [facility] Dr. Sayda Maynard 01/31/13 Paul 41 live - full term 8lbs 3oz Male none [facility]. Reji Maynard 08/02/21 Mohsen 38 live - full term 6lbs 4oz Female [facility] Dr Tyshawn Chaudhari Delivery Date: 04/12/10 Last Updated by: Alie Mack No issues during or delivery Delivery Date: 01/31/13 Last Updated by: Alie Mack No issues during or delivery. ROS Const ROS Unobtainable: All systems reviewed are unremarkable except as noted in H Resp Resp: Reports system reviewed and no additional complaints, except as documented; Denies cough GI GI: Reports as per HPI Psych Psych: Reports system reviewed and no additional complaints, except as documented Exam Const General: cooperative, healthy appearing, comfortable and no acute distress Resp Effort Inspection: normal respiratory effort General: bimanual renal exam normal bilaterally External Female Exam: normal appearance of the urethra Urethra: normal appearance of the urethra Speculum Exam - Vagina: normal appearance of the vagina Speculum Exam - Cervix: normal appearance of the cervix Bimanual Exam- Adnexa, other: normal adnexae and normal Pelvic Support: normal Other: ultrasound shows a 2.5 cm area of retained products in the uterus. Skin General: no rashes or lesions noted Psych Appearance: grossly normal Speech and Movement: speech and movement normal Coding Level of Care Code Off vis,est,level 4 Diagnoses Missed O02.1 Contraceptive management Z30.9 Assessment and Plan Assessment and Plan (1) Missed : Status: Acute Comment: CRL now 3 mm with subchorionic hematoma, no FHT seen, plan medical management fu 1 week (2) Contraceptive management: Status: Acute Plan After discussing the patient's diagnosis and treatment plan options, patient wishes to proceed with surgical m (more content not included)... Normal [facility] Explosive Technician Office Visit Reporton 05-09-2022 Explosive Technician Office Visit Report [facility] [address] [place] [address] OFFICE VISIT Date of Service: 05/09/22 MR#: [id number] Acct: [id number] Name: MANA NARANJO Rep #: [id number] : 1990 Provider: Dr. Jill hager MD Age/Sex: 32/F [place] [facility] Status: Signed Intake Vital Signs 05/09/22 07:50 Height 5 ft Weight: 221 lb 6 oz BMI 43.2 BP 117/79 Intake Visit Reasons: f/u early OB, possible miscarriage Medical Doctor Nuclear Medicine Required: No Accompanied by: Is patient in pain?: No Allergies No Known Allergies Allergy (Verified 05/01/22 13:01) Is last menstrual period known: Yes Last Menstrual Period: 03/05/22 Post menopausal: No Patient : Yes : No PFSH Medical History COVID-19 Vaginal delivery Surgical History History of surgery S/P dilation and curettage Family History Grandfather Cancer Grandmother Cancer Social History adopted: No household members: spouse and children housing: house number of children: 3 current occupational status: unemployed pets and animals: No history of recent travel: Yes ([place] ) out of state: Yes out of country: No sexually active: Yes Smoking Status: Never smoker alcohol intake: never substance use type: does not use well-balanced diet: daily or most days caffeine: No eating out: rarely or never during the past year weight has: remained stable what type of physical activity do you participate in: none jono/sabianist: Synagogue seatbelt use: always do you feel safe at home: Yes additional social history: -[place] HPI f/u early OB, possible miscarriage Details: MANA NARANJO is a 32 year old who presents for follow up of early . she had an ultrasound several day ago that showed GA much earlier than thought and had a CRL measuring 4mm with no FHT seen, and significant subchorionic hematoma. she denies any bleeding or cramping, no fevers or pain. Female Reproductive History Last Menstrual Period: 03/05/22 History 8 Elective abortions Hx Para 3 Spontaneous abortions 4 Hx # Term Pregnancies Ectopic pregnancies Hx # Pregnancies Multiple births # of living children 3 Past Pregnancies Del. Date Name GA/Weeks Outcome Route Bth Weight Infant Gen Labor Lgth Anesthesia Del Locatn Provider FOB Unknown IOL 04/12/10 Kennedy 41 live - full term 8lbs 1oz Male epidural Po [facility] Dr. Sayda Maynard 01/31/13 Paul 41 live - full term 8lbs 3oz Male none [facility]. Reji Maynard 08/02/21 Mohsen 38 live - full term 6lbs 4oz Female [facility] Dr Tyshawn Chaudhari Delivery Date: 04/12/10 Last Updated by: Alie Mack No issues during or delivery Delivery Date: 01/31/13 Last Updated by: Alie Mack No issues during or delivery. ROS Const Constitutional: Reports as per HPI; Denies fever(s) ENT ENT: Reports system reviewed and no additional complaints, except as documented Cardio Card: Reports system reviewed and no additional complaints, except as documented Resp Resp: Reports system reviewed and no additional complaints, except as documented GI GI: Reports as per HPI : Reports as per HPI Musc Musc: Reports system reviewed and no additional complaints, except as documented Skin Skin/Breast: Reports system reviewed and no additional complaints, except as documented Neuro Neuro: Reports system reviewed and no additional complaints, except as documented Endo Endo: Reports system reviewed and no additional complaints, except as documented Exam Const General: healthy appearing, comfortable and no acute distress HENSC Head: normal to inspection and normocephalic Neck Neck: no lymphadenopathy noted Thyroid: thyroid normal Chest Chest palpation inspection: normal inspection of the chest Resp Effort Inspection: normal respiratory effort Cardio Rate: regular rate Rhythm: regular rhythm GI Inspection: normal to inspection Palpation: soft and nontender External Female Exam: normal external appearance Speculum Exam - Vagina: normal appearance of the vagina Bimanual Exam- Vagina Uterus: uterine shape normal and non-tender Skin General: no rashes or lesions noted Neuro General: no focal motor deficits Extrem General: normal to inspection and no pedal edema Psych Appearance: grossly normal Coding Level of Care Code Off vis,est,level 3 Diagnoses Missed O02.1 History of miscarriage, currently pregnan (more content not included)... Normal [facility] Explosive Technician Office Visit Reporton 05-06-2022 Explosive Technician Office Visit Report [facility] [address] [place], [place] [id number] OFFICE VISIT Date of Service: 05/06/22 MR#: [id number] Acct: [id number] Name: MANA NARANJO Rep #: [id number] : 1990 Provider: Dr. Jill hager MD Age/Sex: 32/F [place] [facility] Status: Signed Intake Vital Signs 05/06/22 09:38 05/06/22 09:38 Height 5 ft 5 ft Weight: 223 lb BMI 43.5 BP 122/80 H Intake Visit Reasons: NOB LMP 03/06/22 Chief Complaint: NEW OB LMP 03/05/22 Medical Doctor Nuclear Medicine Required: No Is patient in pain?: No Allergies No Known Allergies Allergy (Verified 05/01/22 13:01) Medications levomefolate calcium 7.5 mg tablet (L-Methylfolate) 7.5 mg PO DAILY MTHFR #90 tabs 09/14/21 [Rx Confirmed 05/01/22] mecobalamin-levomefolate calcium-pyridoxal phos 3 mg-35 mg-2 mg tablet (A-Uhrhzz-I1-B12) 1 tab PO DAILY 30 days #30 tabs 12/10/21 [Rx Confirmed 05/01/22] vitamins no.163-iron bis-gly 20 mg-folate no.10 1 mg tablet (PNV Tabs 20-1) tab PO 05/01/22 [History Confirmed 05/01/22] aspirin 81 mg chewable tablet 81 mg PO DAILY 05/06/22 [History Confirmed 05/06/22] Last Menstrual Period: 03/06/22 Zika: Zika virus screening: Negative : No PFSH PFSH Medical History COVID-19 Vaginal delivery Surgical History History of surgery S/P dilation and curettage Family History Grandfather Cancer Grandmother Cancer Social History adopted: No household members: spouse and children housing: house number of children: 3 current occupational status: unemployed pets and animals: No history of recent travel: Yes ([place] ) out of state: Yes out of country: No sexually active: Yes Smoking Status: Never smoker alcohol intake: never substance use type: does not use well-balanced diet: daily or most days caffeine: No eating out: rarely or never during the past year weight has: remained stable what type of physical activity do you participate in: none jono/sabianist: Synagogue seatbelt use: always do you feel safe at home: Yes additional social history: -[place] History 8 Elective abortions Hx Para 3 Spontaneous abortions 4 Hx # Term Pregnancies Ectopic pregnancies Hx # Pregnancies Multiple births # of living children 3 Past Pregnancies Del. Date Name GA/Weeks Outcome Route Bth Weight Gen Labor Lgth Anesthesia Del Locatn Provider FOB Unknown IOL 04/12/10 Kennedy 41 live - full term 8lbs 1oz Male epidural [facility] Dr. Sayda Maynard 01/31/13 Paul 41 live - full term 8lbs 3oz Male none [facility]. Reji Maynard 08/02/21 Elliana 38 live - full term 6lbs 4oz Female [facility] Dr Tyshawn Chaudhari Delivery Date: 04/12/10 Last Updated by: Alie Mack No issues during or delivery Delivery Date: 01/31/13 Last Updated by: Alie Mack No issues during or delivery. HPI NOB LMP 03/06/22 Details: MANA NARANJO is a 32 year old who presents for New OB visit. she denies any vb or lof she hasn't been taking progesterone. she has had a positive test for over a month. she denies any fevers. OB Visit LITA Calculator Estimated Delivery Date Method Current WG Current Estimate 12/29/22 Ultrasound #1 6w 4d Other Estimates 12/11/22 LMP (Certain) 9w 1d Comments: HIV: Urine Culture: Sequential Screen: NIPT Screen: Estimated Due Date: 12/11/22 Initial Weight: Not Recorded Date -???-???-???-???-???-???-??? -???-???-???-???-???- EGA Weight BP Urine Prot -???-???-???-???-???-???-??? -???-???-???-???-???- Glucose FHR FuHt Pres Dilation -???-???-???-???-???-???-??? -???-???-???-???-???- Effaced St Visit Note 05/06/22 -???-???-???-???-???-???-??? -???-???-???-???-???- 6w 1d 223 lb 122/80 -???-???-???-???-???-???-??? -???-???-???-???-???- -???-???-???-???-???-???-??? -???-???-???-???-???- CRL smaller than LMP LITA 4 mm no FHT seen and subchorionic hematoma present, no vb. Menstrual History Last Menstrual Period: 03/06/22 Reported LMP: definite Normal amount/duration: Yes Frequency in days: 28 On hormonal BC at conception: No hCG+: 04/06/22 Antepartum Record Genetic Screening: Congenital Heart Defect: Other, Neural Tube Defect: Other, Hemoglobinopathy Or Carrier: Patient (MTHFR), Cystic Fibrosis: Other, Chromosome Abnormality: Patient (sisters 3 children- S.A.M.S.), Omar-Sachs: Other, Hemophilia: Other, Intellectual Disability/Autism: Other, Recurrent Loss/Stillbirth: Patient, Other Structur (more content not included)... Normal [facility] PAP I-G w/rfx hrHPV-Aptimaon 09-22-2021 ADEQ Comment Normal . [facility] Comment on above: Order Comment: Clini debbie Info: OTHER - Non Collection Vial: Thin Prep Vial GAME PRODUCER Source: CERVICAL Date LMP/Menopause: N/A Collection Techniques: CX BROOM ONLY Specimen Comment: [id number] Specimen Comment: Source.............Cervix Specimen Comment: No. of containers..01 ThinPrep Vial Result Comment: Sati sfactory for evaluation. Endocervical and/or squamous metaplastic cells (endocervical component) are present. Performed By: #### L 7400.0353 #### [facility] [address] [place], [place], [id number] COMMENT Comment Normal . [facility] Comment on above: Order Comment: Clini debbie Info: OTHER - Non Collection Vial: Thin Prep Vial GAME PRODUCER Source: CERVICAL Date LMP/Menopause: N/A Collection Techniques: CX BROOM ONLY Specimen Comment: IU- Specimen Comment: Source.............Cervix Specimen Comment: No. of containers..01 ThinPrep Vial Result Comment: This liquid based ThinPrep(R) pap test was screened with the use of an image guided system. Performed By: #### L 7400.0353 #### [facility] [address] [place], [place], [id number] DIAG Comment Normal . [facility] Comment on above: Order Comment: Clini debbie Info: OTHER - Non Collection Vial: Thin Prep Vial GAME PRODUCER Source: CERVICAL Date LMP/Menopause: N/A Collection Techniques: CX BROOM ONLY Specimen Comment: [id number] Specimen Comment: Source.............Cervix Specimen Comment: No. of containers..01 ThinPrep Vial Result Comment: NEGA TIVE FOR INTRAEPITHELIAL LESION OR MALIGNANCY. THIS SPECIMEN WAS RESCREENED PART OF OUR BAND LINING BANDER PROGRAM. Performed By: #### L 7400.0353 #### [facility] [address] [place], [place], [id number] HPV RFLX Comment Normal . [facility] Comment on above: Order Comment: Clini debbie Info: OTHER - Non Collection Vial: Thin Prep Vial GAME PRODUCER Source: CERVICAL Date LMP/Menopause: N/A Collection Techniques: CX BROOM ONLY Specimen Comment: [id number] Specimen Comment: Source.............Cervix Specimen Comment: No. of containers..01 ThinPrep Vial Result Comment: The HPV DNA reflex criteria were not met with this specimen result therefore, no HPV testing was performed. Performed at: [address] [id number] Passenger [place]: Bess Rossi MD, Phone: [phone] Performed By: #### L 7400.0353 #### [facility] [address] [place], [address] PAPSMR Comment Normal . [facility] Comment on above: Order Comment: [facility]ini [facility] Info: OTHER - Non Collection Vial: Thin Prep Vial GAME PRODUCER Source: CERVICAL Date LMP/Menopause: N/A Collection Techniques: CX BROOM ONLY Specimen Comment: [id number] Specimen Comment: Source.............Cervix Specimen Comment: No. of containers..01 ThinPrep Vial Result Comment: The Pap smear is a screening test designed to aid in the detection of premalignant and malignant conditions of the uterine cervix. It is not a diagnostic procedure and should not be used as the sole means of detecting cervical cancer. Both false-positive and false-negative reports do occur. Performed By: #### L 7400.0353 #### [facility] [address] [place], [address] PERFORM Comment Normal . [facility] Comment on above: Order Comment: Clini debbie Info: OTHER - Non Collection Vial: Thin Prep Vial GAME PRODUCER Source: CERVICAL Date LMP/Menopause: N/A Collection Techniques: CX BROOM ONLY Specimen Comment: [id number] Specimen Comment: Source.............Cervix Specimen Comment: No. of containers..01 ThinPrep Vial Result Comment: Vesta Duque, Rotor Winder Performed By: #### L 7400.0353 #### [facility] [address] [place], [address] QC REV Comment Normal . [facility] Comment on above: Order Comment: Clini debbie Info: OTHER - Non Collection Vial: Thin Prep Vial GAME PRODUCER Source: CERVICAL Date LMP/Menopause: N/A Collection Techniques: CX BROOM ONLY Specimen Comment: [id number] Specimen Comment: Source.............Cervix Specimen Comment: No. of containers..01 ThinPrep Vial Result Comment: Katalina Wilson, Rotor Winder (ASCP) Performed By: #### L 7400.0353 #### [facility] [address] [place], [address] COMM . Normal . [facility] Comment on above: Order Comment: Clini debbie Info: OTHER - Non Collection Vial: Thin Prep Vial GAME PRODUCER Source: CERVICAL Date LMP/Menopause: N/A Collection Techniques: CX BROOM ONLY Specimen Comment: [id number] Specimen Comment: Source.............Cervix Specimen Comment: No. of containers..01 ThinPrep Vial Performed By: #### L 7400.0353 #### [facility] [address] [place], [address] Explosive Technician Office Visit Reporton 09-14-2021 Explosive Technician Office Visit Report [facility] [address] [place] [address] OFFICE VISIT Date of Service: 09/14/21 MR#: [id number] Acct: [id number] Name: REJIMANA Argentina Rep #: [id number] : 1990 Provider: Dr. Nancy Vargas DO Age/Sex: 31/F [place] [facility] Signed Intake Vital Signs 09/14/21 15:07 Height 5 ft Weight: 198 lb 2 oz BMI 38.7 BP 114/74 Intake Visit Reasons: 6WK PP Medical Doctor Nuclear Medicine Required: No Is patient in pain?: No Allergies No Known Allergies Allergy (Verified 09/14/21 15:08) Medications levomefolate calcium 7.5 mg tablet 7.5 mg PO DAILY #90 tab 09/14/21 [Rx Confirmed 09/14/21] : Yes [facility] Medical History (Updated 09/14/21 @ 15:[address] Nancy Tracy, DO) COVID-19 Vaginal delivery Surgical History History of surgery S/P dilation and curettage Family History Grandfather Cancer Grandmother Cancer Social History Smoking Status: Never smoker alcohol intake: never substance use type: does not use caffeine: Yes additional social history: -Caesar Pregancy History 7 Elective abortions Hx Para 2 Spontaneous abortions 4 Hx # Term Pregnancies Ectopic pregnancies Hx # Pregnancies Multiple births # of living children 3 Past Pregnancies Del. Date Name GA/Weeks Outcome Route Bth Weight Infant Gen Labor Lgth Anesthesia Del Locatn Provider FOB Unknown IOL 04/12/10 [place] 41 live - full term 8lbs 1oz Male epidural [facility] Dr. Sayda Maynard 01/31/13 [place] 41 live - full term 8lbs 3oz Male none [facility] Reji Maynard 08/02/[facility] live - full term 6lbs 4oz Female [facility] Dr Tyshawn Chaudhari Delivery Date: No notes to display Delivery Date: 04/12/10 No issues during or delivery FrederickAlie Delivery Date: 01/31/13 No issues during or delivery. Alie Mack Delivery Date: 08/02/21 No notes to display Post HPI 6WK PP : Details: MANA NARANJO is a 31 year old who presents for her post visit. Details: MANA NARANJO is a 31 year old who presents for her post visit. ROS Const Reports system reviewed and no additional complaints, except as documented GI Reports system reviewed and no additional complaints, except as documented, Denies bloating, Denies constipation, Denies nausea and Denies vomiting Reports system reviewed and no additional complaints, except as documented, Denies abnormal vaginal bleeding, Denies pelvic pain, Denies sexual dysfunction, Denies urinary incontinence, Denies urinary hesitancy, Denies urinary urgency and Denies vaginal discharge Skin/Breast Reports system reviewed and no additional complaints, except as documented and Reports as per HPI Psych Reports as per HPI Exam Const General: cooperative, healthy appearing, comfortable and no acute distress [facility] Head: normal to inspection Neck Neck: normal visual inspection and no lymphadenopathy Thyroid: thyroid normal Chest Breast inspection: normal inspection of the breasts and normal inspection of the axillae Breast palpation: normal palpation of the breasts and normal palpation of the axillae Resp Effort Inspection: normal respiratory effort GI Inspection: normal to inspection Palpation: soft, no hepatosplenomegaly and nontender General: bladder normal to palpation External Female Exam: normal external appearance and normal appearance of the urethra Urethra: normal appearance of the urethra Speculum Exam - Vagina: normal appearance of the vagina and normal vaginal discharge Speculum Exam - Cervix: normal appearance of the cervix Bimanual Exam- Vagina Uterus: normal bimanual exam, uterine size normal, bladder normal to palpation, uterine shape normal and non-tender Bimanual Exam- Adnexa, other: normal adnexae and normal Pelvic Support: normal Skin General: no rashes or lesions noted Coding Level of Care Code No Charge Diagnoses 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 On ASA. (2) Vaginal delivery: Status: Inactive Comment: jonatan Eaton - Dr. Nancy Tracy, DO: Cervical cancer screen (more content not included)... Normal [facility] Discharge Instructionon 07-08 Discharge Instruction [facility] Medical Records Department [address] [place] [address] Instructions for Home/Discharge Instructions 08/02/212026 MR#: [id number] Acct: [id number] Name: MANA NARANJO Rep #: [id number] : 1990 31 From: Nancy Tracy DO PCP: ZAIRA Woodson Status:ADM IN Discharge Instructions Diet Discharge Diet: No restrictions Activity Discharge Activity: Return to Normal Activity, May Not Drive (while taking narcotic pain medications.) and May Shower May resume sexual activity in: 4-6 weeks Dressing / Incision Call your doctor if your incision/area has: Continuous Slow Oozing, Sudden Increased Bleeding, Increased Pain/ Swelling, Increased Redness and Foul Smelling Discharge Follow Up Care Please Follow Up With: Nancy Tracy DO When: Call [phone] to make an appointment with your doctor in 6 weeks. If you had elevated blood pressure or 4th degree laceration, you will need to be seen in 2 weeks. Test Results: Test results from this visit will be discussed in further detail at your follow-up appointment, if applicable. Discharge Plan Admission Admit Date/Time: 08/01/21 19:15 Primary Reason for Your Visit: vaginal delivery Attending Provider: Nancy Tracy Primary Care Provider: Le Miller Discharge Orders/Prescriptions Prescriptions: New ibuprofen 800 mg tablet 800 mg PO Q8H PRN (Reason: pain) 7 Days Qty: 30 RF: 0 Continued levomefolate calcium [L-Methylfolate] 7.5 mg tablet 7.5 mg PO DAILY RF: 0 Discontinued aspirin 81 mg tablet,delayed release (DR/EC) 81 mg PO DAILY RF: 0 ondansetron HCl 4 mg tablet 4 mg PO Q8H PRN (Reason: nausea and vomiting) Qty: 20 RF: 0 Referrals / Follow Up: Le Miller PA [Primary Care Provider] - Disposition Disposition (needs filled in before D/C Order can be placed): Home, Self Care 08/02/212028 Nancy Tracy DO CC: ZAIRA Miller Signed Normal [facility] H AND P Exam - OB/GYNon 07-08 H&P Exam - PERIPATOLOGIST [facility] Medical Records Department [address] [place] [address] H P Exam - PERIPATOLOGIST 08/02/21 5435 MR#: [id number] Acct: [id number] Name: MANA NARANJO Rep #: [id number] : 1990 31 From: Nancy Tracy DO PCP: ZAIRA Woodson Status:ADM IN Location: PD302-2 HPI - General General Date of Admission: 08/01/21 HPI Narrative MANA NARANJO, is a 31y/o @ 39 weeks 4 days who presents to L D for IOL due to recurrent loss, MTHFR, and maternal discomfort at term. She denies loss of fluid or dec fm. Overnight she was given 2 doses of cytotec and states that she did not sleep well secondary to contractions. Maternal Data Information LITA Calculator Estimated Delivery Date Method Current WG Current Estimate 08/05/21 LMP (Certain) 39w 4d PFSH PFSH Medical History (Updated 07/25/21 @ 09:46 by Alie Mack) COVID-19 Home Medications aspirin 81 mg tablet,delayed release 81 mg PO DAILY 01/01/21 [History Last Taken 07/29/21 08:00] levomefolate calcium 7.5 mg tablet 7.5 mg PO DAILY 01/01/21 [History Last Taken 08/01/21 10:00] ondansetron HCl 4 mg tablet 4 mg PO Q8H PRN #20 tab 01/17/21 [Rx Last Taken Unknown] Allergy/AdvReac Type Severity Reaction Status Date / Time No Known Allergies Allergy Verified 08/01/21 20:53 Family History Grandfather Cancer Grandmother Cancer Surgical History (Updated 08/01/21 @ 21:28 by Hayde Rogers) History of surgery S/P dilation and curettage Social History Smoking Status: Never smoker alcohol intake: never substance use type: does not use caffeine: Yes additional social history: -Caesar History 7 Elective abortions Hx Para 2 Spontaneous abortions 4 Hx # Term Pregnancies Ectopic pregnancies Hx # Pregnancies Multiple births # of living children 2 Past Pregnancies Del. Date Name GA/Weeks Outcome Route Bth Weight Gen Labor Lgth Anesthesia Del Locatn Provider FOB 04/12/10 [place] 41 live - full term 8lbs 1oz Male epidural [facility] Dr. Sayda Maynard 01/31/13 [place] 41 live - full term 8lbs 3oz Male none [facility] Reji Maynard Delivery Date: 04/12/10 No issues during or delivery Darek Macknah Delivery Date: 01/31/13 No issues during or delivery. Alie Mack Visit Details Expected Delivery Route/Plan Labor Preferences- labor support person: [] labor intervention preferences: [] pain management options preferred: [] cut cord/dad catch: [] : [] PP control planned: [] discussed possible routes of delivery and associated risks: [] special requests: [] Plans covid vaccine: counseled regarding risk of covid in vs vaccination and declined vaccination flu vaccine: declined tdap vaccine: declined rhogam: [] LARC form signed: [] Problem list reviewed and updated with the most current plan of care details and appropriate orders placed. Relevant counseling for the gestational age provided. Continue routine care and follow up unless otherwise noted in visit notes/problem list details OB Flowsheet Initial Weight: 215 lb Date -???-???-???-???-???-???-??? -???-???-???-???-???- EGA Weight BP Urine Prot -???-???-???-???-???-???-??? -???-???-???-???-???- Glucose FHR FuHt Pres Dilation -???-???-???-???-???-???-??? -???-???-???-???-???- Effaced St Visit Note 01/01/21 -???-???-???-???-???-???-??? -???-???-???-???-???- 9w 1d 215 lb 2 oz (+2 oz) 108/86 -???-???-???-???-???-???-??? -???-???-???-???-???- 175 -???-???-???-???-???-???-??? -???-???-???-???-???- GP - CRL 22m m consistent with LMP 01/17/21 -???-???-???-???-???-???-??? -???-???-???-???-???- 11w 3d 211 lb (-4 lb) 120/80 Negative -???-???-???-???-???-???-??? -???-???-???-???-???- Negative 168 -???-???-???-???-???-???-??? -???-???-???-???-???- GP - no cram ping or bleeding. Attempted to do NOB labs with GCT but threw up. Will pretreat with zofran and do next visit. Discussed tx of constipation 02/08/21 -???-???-???-???-???-???-??? -???-???-???-???-???- 14w 4d 118/82 Negative -???-???-???-???-???-???-??? -???-???-???-???-???- Negative 160 -???-???-???-???-???-???-??? -???-???-???-???-???- -NO Vb, LO F. PNL today. US active, live iup. Order [facility] anatomy US 03/14/21 -???-???-???-???-???-???-??? -???-???-???-???-???- 19w 3d 209 lb (-6 lb) 126/82 Negative -???-???-???-???-???-???-??? -???-???-???-???-???- Negative 150 -???-???-???-???-???-???-??? -???-???-???-???-???- GP - no cram ping or bleeding. Anatomy next week. Birthday is today - going to coffee with sisters. (more content not included)... Normal [facility] HIV - WCHon 08-02-2021 HIV Non-Reactive Normal Nonreactive [facility] Comment on above: Performed By: #### L 3890.6300, L3890.6005, L509.8000 #### [facility] [address] [place], [place], [id number] Hepatitis B Surface Antigeno n 08-02-2021 HEP B Surf Ag Non-Reactive Normal Nonreactive [facility] Comment on above: Performed By: #### L 3890.6100 #### [facility] [address] [place], [address] Hepatitis C Antibodyon 08-02 Hepatitis C Ab Non-Reactive Normal Nonreactive [facility] Comment on above: Result Comment: Non Reactive: < 0.8 Equivocal: >/= 0.8 to < 1.0 Reactive: >/= 1.0 The CDC recommends that a reactive/equivocal HCV antibody result be followed up by the HCV Nucleic Acid Amplification test (958240) Performed By: #### L 3890.6300, L3890.6005, L509.8000 #### [facility] [address] [place], [address] L509.8000on 08-02-2021 Syphilis Abs Non-Reactive Normal [facility] Comment on above: Performed By: #### L 3890.6300, L3890.6005, L509.8000 #### [facility] [address] [place], [address] Operative Reporton 2 Operative Report [facility] Medical Records Department [address] [place] [address] Operative Report 08/02/21 1137 MR#: [id number] Acct: [id number] Name: MANA NARANJO Rep #: [id number] : 1990 31 From: Nancy Tracy DO PCP: ZAIRA Woodson Status:ADM IN Location: [place] [address] Assessment Plan (1) Supervision of normal : QUALIFIERS: Normal : other normal Trimester: first trimester Qualified Code(s): Z34.81 - Encounter for supervision of other normal , first trimester COMMENT: PRR (minimal labs) LITA 08/05/21 Dawson! PC:KennedyPaul, Spouse:Caesar (2) MTHFR deficiency complicating : QUALIFIERS: Trimester: first trimester Qualified Code(s): O99.281 - Endocrine, nutritional and metabolic diseases complicating , first trimester; E72.12 - Methylenetetrahydrofolate reductase deficiency COMMENT: Taking methylfolate. On ASA. (3) : QUALIFIERS: Weeks of gestation: 38 weeks Qualified Code(s): Z3A.38 - 38 weeks gestation of COMMENT: neg. GBS, Declines NIPT, carrier, and AFP; NL anatomy. declined std testing, agrees to be done at delivery. (4) Recurrent loss: COMMENT: Miscarriage x4. Taking ASA. (5) COVID-19: COMMENT: suspected positive, asa and growth US 35-36 wks- NL growth 06/25. Maternal Data Information LITA Calculator Estimated Delivery Date Method Current WG Current Estimate 08/05/21 LMP (Certain) 39w 4d Vaginal Delivery Maternal Presentation Maternal Presentation: Elective Induction Type of Induction: Amniotomy and Cytotec Operative Information Date of Procedure: 08/02/21 Pre-Operative Diagnosis: 39 weeks, MTHFR, COVID in , , recurrent losses Post-Operative Diagnosis: 39 weeks, MTHFR, COVID in , , recurrent losses Type of Anesthesia: None Estimated Blood Loss: 200cc Findings Description of Procedure: Patient began pushing and delivered the head in the MORENITA presentation. The head was delivered atraumatically and a loose nuchal cord ???1 was identified and easily reduced over the infant's head. The anterior and posterior shoulders delivered without complication followed by the rest of the and the infant was placed on the maternal abdomen. Delayed cord clamping was employed for approximately 60 seconds. Cord was clamped and cut and gentle traction was applied to the cord and the placenta delivered spontaneously immediately following it was noted to be intact with three-vessel cord. The perineum and vagina were inspected and noted to have no laceration. EBL was 200cc. Patient and infant tolerated delivery well. Presentation: MORENITA Amniotic Membrane Rupture Type: Spontaneous Amniotic Fluid Description: Clear Placental Delivery Description: Spontaneous Placenta Disposition: [facility] Cord Vessel Description: 3 Vessels Cord Entanglement: Around neck x 1, loose A Gender: Female (1 minute): 8 (5 minute): 9 Delayed Cord Clamping: Yes Post Vaginal Delivery Medications Given After Delivery: IV Pitocin Episiotomy Description: None Laceration: None Complication Complications: None Multi Select Codes Urinary/Genital Urinary/Genital CPT Codes: 25478 Vaginal Delivery [facility] 08/02/21 1140 Cosigner Signature (if applicable): CC: ZAIRA Miller; Dr. Nancy Tracy DO Signed [facility] Type AND Screenon 08-02-2021 Ab SCREEN GEL Negative [facility] Comment on above: Order Comment: Labor Performed By: #### B TS, L100.0100 #### [facility] [address] [place], [place], [id number] ABO and Rh group Nom (Bld) Blood group B Rh(D) positive [facility] Comment on above: Order Comment: Labor Performed By: #### B TS, L100.0100 #### [facility] [address] [place], [address] CBC W/Diff, Automatedon -2 Absolute Lymph 2.25 X10 3/uL Normal 0.83-4.51 [facility] Comment on above: Performed By: #### Geri GARY, L100.0100 #### [facility] [address] [place], [address] Absolute Neut 9.7 X10 3/uL High 2.0-7.7 [facility] Comment on above: Performed By: #### Geri GARY, L100.0100 #### [facility] [address] [place], [address] Basophils/100 WBC (Bld) 0.2 % Normal 0-1 [facility] Comment on above: Performed By: #### Geri GARY, L100.0100 #### [facility] [address] [place], [address] Eosinophils/100 WBC (Bld) 0.4 % Normal 0-5 [facility] Comment on above: Performed By: #### Geri GARY, L100.0100 #### [facility] [address] [place], [address] Erythrocyte distribution width (RBC) [Ratio] 15.2 % High 11.6-14.6 [facility] Comment on above: Performed By: #### Geri GARY, L100.0100 #### [facility] [address] [place], [address] Hematocrit (Bld) [Volume fraction] 32.2 % Low 37-47 [facility] Comment on above: Performed By: #### Geri GARY, L100.0100 #### [facility] [address] [place], [address] Hemoglobin (Bld) [Mass/Vol] 10.4 g/dL Low 12.0-15.0 [facility] Comment on above: Performed By: #### Geri GARY, L100.0100 #### [facility] [address] [place], [address] IG% 0.400 Normal 0.0-0.9 [facility] Comment on above: Result Comment: IG% - Immature Granulocytes (promyelocytes, myelocytes and metamyelocytes) > 1% indicates that a LEFT SHIFT is Present. Performed By: #### Geri GARY, L100.0100 #### [facility] [address] [place], [address] Lymphocytes/100 WBC (Bld) 17.6 % Low 19-41 [facility] Comment on above: Performed By: #### Geri GARY, L100.0100 #### [facility] [address] [place], [address] MCH (RBC) [Entitic mass] 27.8 pg Normal 27.0-32.0 [facility] Comment on above: Performed By: #### Geri GARY, L100.0100 #### [facility] [address] [place], [address] MCHC (RBC) [Mass/Vol] 32.3 g/dL Normal 32-36 [facility] Comment on above: Performed By: #### B ABDIRAHMAN, L100.0100 #### [facility] [address] [place], [address] MCV (RBC) [Entitic vol] 86.1 fL Normal 81-99 [facility] Comment on above: Performed By: #### Geri GARY, L100.0100 #### [facility] [address] [place], [address] Monocytes/100 WBC (Bld) 5.2 % Normal 0-10 [facility] Comment on above: Performed By: #### B ABDIRAHMAN, L100.0100 #### [facility] [address] [place], [address] Neutrophils/100 WBC (Bld) 76.2 % High 47-70 [facility] Comment on above: Performed By: #### Geri GARY, L100.0100 #### [facility] [address] [place], [address] Nucleated RBC (Bld) [#/Vol] 0 10*3/uL Normal 0-5 [facility] Comment on above: Performed By: #### Geri GARY, L100.0100 #### [facility] [address] [place], [address] Platelet mean volume (Bld) [Entitic vol] 12.2 fL High 6.2-12.0 [facility] Comment on above: Performed By: #### Geri GARY, L100.0100 #### [facility] [address] [place], [address] Platelets (Bld) [#/Vol] 269 10*3/uL Normal 150-450 [facility] Comment on above: Performed By: #### Geri GARY, L100.0100 #### [facility] [address] [place], [address] RBC (Bld) [#/Vol] 3.74 10*6/uL Low 4.2-5.[address] [facility] Comment on above: Performed By: #### Geri GARY, L100.0100 #### [facility] [address] [place], [address] RDW SD 47.7 fl High 35.1-43.9 [facility] Comment on above: Performed By: #### Geri GARY, L100.0100 #### [facility] [address] [place], [address] WBC (Bld) [#/Vol] 12.8 10*3/uL High 4.4-11.[address] [facility] Comment on above: Performed By: #### Geri GARY, L100.0100 #### [facility] [address] [place], [address] COVID 19 AG RAPID (RN COLLEC T)on 08-01-2021 SARS-CoV-2 (COVID-19) RNA PHILIPPE+probe Ql (Unsp spec) *Negative results from patients with symptom onset beyond five days should be treated as presumptive and confirmed by a molecular assay if clinically necessary. Negative results should not be used as the sole basis for treatment or for patient management. COVID 19 AG RAPID (RN COLLECT) *Positive results do not differentiate between SARS-CoV and SARS-CoV-2. If differentation of the specific SARS virus is desired an additional sample and an additional order is required. COVID 19 AG RAPID (RN COLLECT) * This test has not been FDA cleared or approved; the test has been authorized by FDA under an Emergency Use Authorization (EAU) for use by laboratories certified under CLIA that meet the requirements to perform moderate, high, or waived complexity tests. COVID 19 AG RAPID (RN COLLECT) Normal Reference Range: Negative SARS-CoV-2 (COVID 19) Negative RAPID METHOD Quidel Sarah Analyzer TAL Normal [facility] Comment on above: Performed By: #### M 100.505 ####[facility] [id number] [place], [place], [address] Explosive Technician Office Visit Reporton 07-25-2021 Explosive Technician Office Visit Report [facility] [address] [place], [place] [address] OFFICE VISIT Date of Service: 07/25/21 MR#: [id number] Acct: [id number] Name: MANA NARANJO Rep #: [id number] : 1990 Provider: Dr. Nancy Vargas DO Age/Sex: 31/F [place] [facility]: Signed Intake Vital Signs 07/25/21 09:45 07/25/21 09:47 Height 5 ft Weight: 207 lb 6 oz BMI 40.5 42.0 BP 120/80 Intake Visit Reasons: 38WK OB Medical Doctor Nuclear Medicine Required: No Is patient in pain?: No Allergies No Known Allergies Allergy (Verified 07/25/21 09:45) Medications aspirin 81 mg tablet,delayed release 81 mg PO DAILY 01/01/21 [History Confirmed 07/25/21] levomefolate calcium 7.5 mg tablet 7.5 mg PO DAILY 01/01/21 [History Confirmed 07/25/21] ondansetron HCl 4 mg tablet 4 mg PO Q8H PRN #20 tab 01/17/21 [Rx Confirmed 07/25/21] Last Menstral Period: 10/29/20 Zika: Zika virus screening: Negative : No PFSH PFSH Medical History COVID-19 Surgical History S/P dilation and curettage Family History Grandfather Cancer Grandmother Cancer Social History Smoking Status: Never smoker alcohol intake: never substance use type: does not use caffeine: Yes additional social history: -Caesar Pregancy History 7 Elective abortions Hx Para 2 Spontaneous abortions 4 Hx # Term Pregnancies Ectopic pregnancies Hx # Pregnancies Multiple births # of living children 2 Past Pregnancies Del. Date Name GA/Weeks Outcome Route Bth Weight Infant Gen Labor Lgth Anesthesia Del Locatn Provider FOB 04/12/10 [place] 41 live - full term 8lbs 1oz Male epidural Po [facility] Dr. Sayda Maynard 01/31/13 [place] 41 live - full term 8lbs 3oz Male none [facility] Naranjo [place] Delivery Date: 04/12/10 No issues during or delivery Alie Mack Delivery Date: 01/31/13 No issues during or delivery. Alie Mack HPI 38WK OB Details: MANA NARANJO is a 31 year old who presents for routine OB visit. OB Visit LITA Calculator Estimated Delivery Date Method Current WG Current Estimate 08/05/21 LMP (Certain) 38w 3d Expected Delivery Route/Plan Labor Preferences- labor support person: [] labor intervention preferences: [] pain management options preferred: [] cut cord/dad catch: [] : [] PP control planned: [] discussed possible routes of delivery and associated risks: [] special requests: [] Specific Issue/Plans covid vaccine: counseled regarding risk of covid in vs vaccination and declined vaccination flu vaccine: declined tdap vaccine: declined rhogam: [] LARC form signed: [] Problem list reviewed and updated with the most current plan of care details and appropriate orders placed. Relevant counseling for the gestational age provided. Continue routine care and follow up unless otherwise noted in visit notes/problem list details Initial Weight: 215 lb Date -???-???-???-???-???-???-??? -???-???-???-???-???- EGA Weight BP Urine Prot -???-???-???-???-???-???-??? -???-???-???-???-???- Glucose FHR FuHt Pres Dilation -???-???-???-???-???-???-??? -???-???-???-???-???- Effaced St Visit Note 01/01/21 -???-???-???-???-???-???-??? -???-???-???-???-???- 9w 1d 215 lb 2 oz (+2 oz) 108/86 -???-???-???-???-???-???-??? -???-???-???-???-???- 175 -???-???-???-???-???-???-??? -???-???-???-???-???- GP - CRL 22m m consistent with LMP 01/17/21 -???-???-???-???-???-???-??? -???-???-???-???-???- 11w 3d 211 lb (-4 lb) 120/80 Negative -???-???-???-???-???-???-??? -???-???-???-???-???- Negative 168 -???-???-???-???-???-???-??? -???-???-???-???-???- GP - no cram ping or bleeding. Attempted to do NOB labs with GCT but threw up. Will pretreat with zofran and do next visit. Discussed tx of constipation 02/08/21 -???-???-???-???-???-???-??? -???-???-???-???-???- 14w 4d 118/82 Negative -???-???-???-???-???-???-??? -???-???-???-???-???- Negative 160 -???-???-???-???-???-???-??? -???-???-???-???-???- -NO Vb, LO F. PNL today. US active, live iup. Order [facility] anatomy 03/14/21 -???-???-???-???-???-???-??? -???-???-???-???-???- 19w 3d 209 lb (-6 lb) 126/82 Negative -???-???-???-???-???-???-??? -???-???-???-???-???- Negative 150 -???-???-???-???-???-???-??? -???-???-???-???-???- GP - no cram ping or bleeding. Anatomy next week. Birthday is today - going to coffee with sisters. 04/11/21 -???-???-???-???-???-???-??? -???-???-???-???-?? (more content not included)... Normal [facility] Explosive Technician Office Visit Reporton 07-17-2021 Explosive Technician Office Visit Report [facility] [address] [place] [address] OFFICE VISIT Date of Service: 07/17/21 MR#: [id number] Acct: [id number] Name: MANA NARANJO Rep #: [id number] : 1990 Provider: Dr. Jill hager MD Age/Sex: 31/F [place] [facility] [place]: Signed Intake Vital Signs 07/17/21 09:59 07/17/21 10:00 Height 5 ft Weight: 208 lb BMI 40.6 42.0 BP 106/74 Intake Visit Reasons: 37WK OB Chief Complaint: est ob Medical Doctor Nuclear Medicine Required: No Is patient in pain?: No Allergies No Known Allergies Allergy (Verified 07/17/21 10:00) Medications aspirin 81 mg tablet,delayed release 81 mg PO DAILY 01/01/21 [History Confirmed 07/17/21] levomefolate calcium 7.5 mg tablet 7.5 mg PO DAILY 01/01/21 [History Confirmed 07/17/21] ondansetron HCl 4 mg tablet 4 mg PO Q8H PRN #20 tab 01/17/21 [Rx Confirmed 07/17/21] Last Menstral Period: 10/29/20 Zika: Zika virus screening: Negative : No PFSH PFSH Medical History COVID-19 Surgical History S/P dilation and curettage Family History Grandfather Cancer Grandmother Cancer Social History Smoking Status: Never smoker alcohol intake: never substance use type: does not use caffeine: Yes additional social history: -Caesar Pregancy History 7 Elective abortions Hx Para 2 Spontaneous abortions 4 Hx # Term Pregnancies Ectopic pregnancies Hx # Pregnancies Multiple births # of living children 2 Past Pregnancies Del. Date Name GA/Weeks Outcome Route Bth Weight Gen Labor Lgth Anesthesia Del Locatn Provider FOB 04/12/10 [place] 41 live - full term 8lbs 1oz Male epidural Po [facility] Dr. Sayda Maynard 01/31/13 [place] 41 live - full term 8lbs 3oz Male none [facility] Reji Maynard Delivery Date: 04/12/10 No issues during or delivery Alie Mack Delivery Date: 01/31/13 No issues during or delivery. Alie Mack HPI 37WK OB Details: MANA NARANJO is a 31 year old who presents for routine OB visit. OB Visit LITA Calculator Estimated Delivery Date Method Current WG Current Estimate 08/05/21 LMP (Certain) 37w 2d Expected Delivery Route/Plan Labor Preferences- labor support person: [] labor intervention preferences: [] pain management options preferred: [] cut cord/dad catch: [] : [] PP control planned: [] discussed possible routes of delivery and associated risks: [] special requests: [] Specific Issue/Plans covid vaccine: counseled regarding risk of covid in vs vaccination and declined vaccination flu vaccine: declined tdap vaccine: declined rhogam: [] LARC form signed: [] Problem list reviewed and updated with the most current plan of care details and appropriate orders placed. Relevant counseling for the gestational age provided. Continue routine care and follow up unless otherwise noted in visit notes/problem list details Initial Weight: 215 lb Date -???-???-???-???-???-???-??? -???-???-???-???-???- EGA Weight BP Urine Prot -???-???-???-???-???-???-??? -???-???-???-???-???- Glucose FHR FuHt Pres Dilation -???-???-???-???-???-???-??? -???-???-???-???-???- Effaced St Visit Note 01/01/21 -???-???-???-???-???-???-??? -???-???-???-???-???- 9w 1d 215 lb 2 oz (+2 oz) 108/86 -???-???-???-???-???-???-??? -???-???-???-???-???- 175 -???-???-???-???-???-???-??? -???-???-???-???-???- GP - CRL 22m m consistent with LMP 01/17/21 -???-???-???-???-???-???-??? -???-???-???-???-???- 11w 3d 211 lb (-4 lb) 120/80 Negative -???-???-???-???-???-???-??? -???-???-???-???-???- Negative 168 -???-???-???-???-???-???-??? -???-???-???-???-???- GP - no cram ping or bleeding. Attempted to do NOB labs with GCT but threw up. Will pretreat with zofran and do next visit. Discussed tx of constipation 02/08/21 -???-???-???-???-???-???-??? -???-???-???-???-???- 14w 4d 118/82 Negative -???-???-???-???-???-???-??? -???-???-???-???-???- Negative 160 -???-???-???-???-???-???-??? -???-???-???-???-???- -NO Vb, LO F. PNL today. US active, live iup. Order [facility] anatomy 03/14/21 -???-???-???-???-???-???-??? -???-???-???-???-???- 19w 3d 209 lb (-6 lb) 126/82 Negative -???-???-???-???-???-???-??? -???-???-???-???-???- Negative 150 -???-???-???-???-???-???-??? -???-???-???-???-???- GP - no cram ping or bleeding. Anatomy next week. Birthday is today - going to coffee with sisters. 04/11/21 -???-???-???-???-???-???-??? -???-??? (more content not included)... Normal [facility] Rule out Beta Strep (Grp. B) on 07-13-2021 DIEGO Group B Beta Strepto coccus is not isolated. Normal [facility] Comment on above: Performed By: #### M [phone] #### [facility] [address] [place], [address] Explosive Technician Office Visit Reporton 07-11-2021 Explosive Technician Office Visit Report [facility] [address] [place] [address] OFFICE VISIT Date of Service: 07/11/21 MR#: [id number] Acct: [id number] Name: MANA NARANJO Rep #: [id number] : 1990 Provider: Dr. Nancy Vargas DO Age/Sex: 31/F [place] [facility] [place]: Signed Intake Vital Signs 07/11/21 09:56 07/11/21 09:57 Height 5 ft Weight: 206 lb 4 oz BMI 40.2 42.0 BP 110/82 H Intake Visit Reasons: 36WK OB, per JV pt pt in room 2 for u/s Medical Doctor Nuclear Medicine Required: No Is patient in pain?: No Allergies No Known Allergies Allergy (Verified 07/11/21 09:56) Medications aspirin 81 mg tablet,delayed release 81 mg PO DAILY 01/01/21 [History Confirmed 07/11/21] levomefolate calcium 7.5 mg tablet 7.5 mg PO DAILY 01/01/21 [History Confirmed 07/11/21] ondansetron HCl 4 mg tablet 4 mg PO Q8H PRN #20 tab 01/17/21 [Rx Confirmed 07/11/21] Last Menstral Period: 10/29/20 Zika: Zika virus screening: Negative : No PFSH PFSH Medical History COVID-19 Surgical History S/P dilation and curettage Family History Grandfather Cancer Grandmother Cancer Social History Smoking Status: Never smoker alcohol intake: never substance use type: does not use caffeine: Yes additional social history: -Caesar Pregancy History 7 Elective abortions Hx Para 2 Spontaneous abortions 4 Hx # Term Pregnancies Ectopic pregnancies Hx # Pregnancies Multiple births # of living children 2 Past Pregnancies Del. Date Name GA/Weeks Outcome Route Bth Weight Gen Labor Lgth Anesthesia Del Locatn Provider FOB 04/12/10 [place] 41 live - full term 8lbs 1oz Male epidural Po [facility] Dr. Sayda Maynard 01/31/13 [place] 41 live - full term 8lbs 3oz Male none [facility]. Reji Maynard Delivery Date: 04/12/10 No issues during or delivery [place] Delivery Date: 01/31/13 No issues during or delivery. Alie Mack HPI 36WK OB, per JV pt pt in room 2 for u/s Details: MANA NARANJO is a 31 year old who presents for routine OB visit. OB Visit LITA Calculator Estimated Delivery Date Method Current WG Current Estimate 08/05/21 LMP (Certain) 36w 3d Expected Delivery Route/Plan Labor Preferences- labor support person: [] labor intervention preferences: [] pain management options preferred: [] cut cord/dad catch: [] : [] PP control planned: [] discussed possible routes of delivery and associated risks: [] special requests: [] Specific Issue/Plans covid vaccine: counseled regarding risk of covid in vs vaccination and declined vaccination flu vaccine: declined tdap vaccine: declined rhogam: [] LARC form signed: [] Problem list reviewed and updated with the most current plan of care details and appropriate orders placed. Relevant counseling for the gestational age provided. Continue routine care and follow up unless otherwise noted in visit notes/problem list details Initial Weight: 215 lb Date -???-???-???-???-???-???-??? -???-???-???-???-???- EGA Weight BP Urine Prot -???-???-???-???-???-???-??? -???-???-???-???-???- Glucose FHR FuHt Pres Dilation -???-???-???-???-???-???-??? -???-???-???-???-???- Effaced St Visit Note 06/28/21 -???-???-???-???-???-???-??? -???-???-???-???-???- 9w 1d 215 lb 2 oz (+2 oz) 108/86 -???-???-???-???-???-???-??? -???-???-???-???-???- 175 -???-???-???-???-???-???-??? -???-???-???-???-???- GP - CRL 22m m consistent with LMP 01/17/21 -???-???-???-???-???-???-??? -???-???-???-???-???- 11w 3d 211 lb (-4 lb) 120/80 Negative -???-???-???-???-???-???-??? -???-???-???-???-???- Negative 168 -???-???-???-???-???-???-??? -???-???-???-???-???- GP - no cram ping or bleeding. Attempted to do NOB labs with GCT but threw up. Will pretreat with zofran and do next visit. Discussed tx of constipation 02/08/21 -???-???-???-???-???-???-??? -???-???-???-???-???- 14w 4d 118/82 Negative -???-???-???-???-???-???-??? -???-???-???-???-???- Negative 160 -???-???-???-???-???-???-??? -???-???-???-???-???- -NO Vb, LO F. PNL today. US active, live iup. Order [facility] anatomy US 03/14/21 -???-???-???-???-???-???-??? -???-???-???-???-???- 19w 3d 209 lb (-6 lb) 126/82 Negative -???-???-???-???-???-???-??? -???-???-???-???-???- Negative 150 -???-???-???-???-???-???-??? -???-???-???-???-???- GP - no cram ping or bleeding. Anatomy next week. Birthday is today - going to coffee with siste (more content not included)... Normal [facility] Explosive Technician Office Visit Reporton 06-27-2021 Explosive Technician Office Visit Report [facility] [address] [place] [address] OFFICE VISIT Date of Service: 06/27/21 MR#: [id number] Acct: [id number] Name: MANA NARANJO Rep #: [id number] : 1990 Provider: Dr. Nancy Vargas DO Age/Sex: 31/F [place] [facility] [place]: Signed Intake Vital Signs 06/27/21 10:08 06/27/21 10:11 Height 5 ft Weight: 209 lb 4 oz BMI 40.8 42.0 BP 124/84 H Intake Visit Reasons: 34WK OB Medical Doctor Nuclear Medicine Required: No Is patient in pain?: No Allergies No Known Allergies Allergy (Verified 06/27/21 10:10) Medications aspirin 81 mg tablet,delayed release 81 mg PO DAILY 01/01/21 [History Confirmed 06/27/21] levomefolate calcium 7.5 mg tablet 7.5 mg PO DAILY 01/01/21 [History Confirmed 06/27/21] ondansetron HCl 4 mg tablet 4 mg PO Q8H PRN #20 tab 01/17/21 [Rx Confirmed 06/27/21] Last Menstral Period: 10/29/20 Zika: Zika virus screening: Negative : No PFSH PFSH Medical History COVID-19 Surgical History S/P dilation and curettage Family History Grandfather Cancer Grandmother Cancer Social History Smoking Status: Never smoker alcohol intake: never substance use type: does not use caffeine: Yes additional social history: -Caesar Pregancy History 7 Elective abortions Hx Para 2 Spontaneous abortions 4 Hx # Term Pregnancies Ectopic pregnancies Hx # Pregnancies Multiple births # of living children 2 Past Pregnancies Del. Date Name GA/Weeks Outcome Route Bth Weight Gen Labor Lgth Anesthesia Del Locatn Provider FOB 04/12/10 [place] 41 live - full term 8lbs 1oz Male epidural Po [facility] Dr. Sayda Maynard 01/31/13 [place] 41 live - full term 8lbs 3oz Male none [facility] Naranjo [place] Delivery Date: 04/12/10 No issues during or delivery Alie Mack Delivery Date: 01/31/13 No issues during or delivery. Alie Mack HPI 34WK OB Details: MANA NARANJO is a 31 year old who presents for routine OB visit. OB Visit LITA Calculator Estimated Delivery Date Method Current WG Current Estimate 08/05/21 LMP (Certain) 34w 3d Expected Delivery Route/Plan Labor Preferences- labor support person: [] labor intervention preferences: [] pain management options preferred: [] cut cord/dad catch: [] : [] PP control planned: [] discussed possible routes of delivery and associated risks: [] special requests: [] Specific Issue/Plans covid vaccine: counseled regarding risk of covid in vs vaccination and declined vaccination flu vaccine: declined tdap vaccine: declined rhogam: [] LARC form signed: [] Problem list reviewed and updated with the most current plan of care details and appropriate orders placed. Relevant counseling for the gestational age provided. Continue routine care and follow up unless otherwise noted in visit notes/problem list details Initial Weight: 215 lb Date -???-???-???-???-???-???-??? -???-???-???-???-???- EGA Weight BP Urine Prot -???-???-???-???-???-???-??? -???-???-???-???-???- Glucose FHR FuHt Pres Dilation -???-???-???-???-???-???-??? -???-???-???-???-???- Effaced St Visit Note 01/01/21 -???-???-???-???-???-???-??? -???-???-???-???-???- 9w 1d 215 lb 2 oz (+2 oz) 108/86 -???-???-???-???-???-???-??? -???-???-???-???-???- 175 -???-???-???-???-???-???-??? -???-???-???-???-???- GP - CRL 22m m consistent with LMP 01/17/21 -???-???-???-???-???-???-??? -???-???-???-???-???- 11w 3d 211 lb (-4 lb) 120/80 Negative -???-???-???-???-???-???-??? -???-???-???-???-???- Negative 168 -???-???-???-???-???-???-??? -???-???-???-???-???- GP - no cram ping or bleeding. Attempted to do NOB labs with GCT but threw up. Will pretreat with zofran and do next visit. Discussed tx of constipation 02/08/21 -???-???-???-???-???-???-??? -???-???-???-???-???- 14w 4d 118/82 Negative -???-???-???-???-???-???-??? -???-???-???-???-???- Negative 160 -???-???-???-???-???-???-??? -???-???-???-???-???- -NO Vb, LO F. PNL today. US active, live iup. Order [facility] anatomy 03/14/21 -???-???-???-???-???-???-??? -???-???-???-???-???- 19w 3d 209 lb (-6 lb) 126/82 Negative -???-???-???-???-???-???-??? -???-???-???-???-???- Negative 150 -???-???-???-???-???-???-??? -???-???-???-???-???- GP - no cram ping or bleeding. Anatomy next week. Birthday is today - going to coffee with sisters. 04/11/21 -???-???-???-???-???-???-??? -???-???-???-???- (more content not included)... Normal [facility] OB Limited With [facility]ometric[facility] 06-25-2021 OB Limited With Biometrics [facility] Services [address] [place] [address] OB Limited With Biometrics MR#: [id number] Acct: [id number] Name: MANA NARANJO Rep #: [id number] : 1990 F 31 From: Clayton azevedo MD PCP: ZAIRA Woodson Status: REG CLI Study: OB Limited With Biometrics Date of Exam: 06/25 Exam# [id number] Ordering Dr: Jill cOampo STUDY: SECOND AND THIRD TRIMESTER OBSTETRICAL ULTRASOUND - LIMITED REASON FOR EXAM: Female, 31 years old . growth. LMP: 10/29/2020. PRIOR ULTRASOUND: Comparison is made with prior study dated 03/20/2021. TECHNIQUE: Transabdominal TECHNICAL QUALITY: Adequate. FINDINGS: There is a single intrauterine fetus. The fetus is in a cephalic presentation. There is demonstrated cardiac activity with a heart rate of 149 bpm. There is a normal amniotic fluid volume. The largest amniotic fluid pocket measures 4.3 cm x 2.9 cm. The amniotic fluid index (SANDRA) is 12.02 cm. The placenta is anterior in location and is not low lying. There are Grade 1 placental changes. The cervix measures 4.6 cm in length. BIOMETRY: BPD: 7.92 cm: 31 weeks, 5 days HC: 29.72 cm: 32 weeks, 6 days AC: 29.14 cm: 33 weeks, 0 days FL: 6.25 cm: 30 weeks, 2 days Age by LMP: 34 weeks, 1 days. LITA by LMP: 08/05/2021. age by prior US: 32 weeks, 6 days. LITA by prior US: 08/14/2021. age by current US: 32 weeks, 4 days. LITA by current US: 08/16/2021. Estimated weight: 2052 grams, +/- 300 grams, 13.2 percentile. US/OB Limited With Biometrics IMPRESSION: Single live intrauterine gestation with a mean gestational age of 32 weeks and 6 days. The measurements obtained today fall within normal limits. Electronically Signed: Clayton Parr MD at 13:07 EST , Service support , CC: ZAIRA Miller; Dr. Jill Ocampo MD Supervisor Burling And Joining: Signed [facility] Final Surgical Pathology Rep [facility] 09-06-2019 Final Surgical Pathology Report . Pathology Reports Accession: Collected Date/Time: Received Date/Time: Pathologist: [id number] 09/02/2019 11:55 EST 09/03/2019 07:57 EST COCO ROD MD Final Surgical Pathology Report DIAGNOSIS: UTERINE CONTENTS - FRAGMENTS OF DECIDUALIZED TISSUE, BLOOD CLOT, AND CHORIONIC VILLI (PRODUCTS OF CONCEPTION) IDENTIFIED. COMMENT: [facility] [id number] CLINICAL INFORMATION: Procedure: SUCTION DILATION AND CURETTAGE Preoperative diagnosis: MISSED Postoperative diagnosis: MISSED SPECIMEN: A PRODUCTS OF CONCEPTION GROSS DESCRIPTION: Received in formalin labeled products of conception are numerous friable fragments of pink davis tissue and clotted blood, aggregating to 9.0 x 5.0 x 1.5 cm. Inspection of these shows possible chorionic villi, but tissue is not identified grossly. RS-1 dictated by James Hansen M.D. Dictated by [employer] MICROSCOPIC DESCRIPTION: Slides reviewed. Electronically Signed by Pathology Report verified by [facility] Electronically signed by COCO R[employer] Sign out Date: 09/06/2019 14:58 Performing Lab: [facility], [address] [place] [address] [facility] ([place]) Comment on above: Performed By: #### C BC, ADIFF, ANEU, PABO, PABS, VARIS, RUBIS, RPR, HBSAG, HIV #### [address] [address] .Auto Diffon 09-02-2019 Ammonia (P) [Mass/Vol] 0.40 10 3/mcL Normal 0.15-1.00 [facility] ([place]) Comment on above: Performed By: #### C BC, ADIFF, ANEU, PABO, PABS, VARIS, RUBIS, RPR, HBSAG, HIV #### [address] [address] Basophils (Bld) [#/Vol] 0.10 10 3/mcL Normal 0.00-0.19 [facility] ([place] Comment on above: Performed By: #### C BC, ADIFF, ANEU, PABO, PABS, VARIS, RUBIS, RPR, HBSAG, HIV #### [place] [address] Basophils/100 WBC (Bld) 0.7 % Normal 0.0-2.5 [facility] ([place]) Comment on above: Performed By: #### C BC, ADIFF, ANEU, PABO, PABS, VARIS, RUBIS, RPR, HBSAG, HIV #### [address] [address] Eosinophils (Bld) [#/Vol] 0.10 10 3/mcL Normal 0.00-0.40 [facility] ([place] Comment on above: Performed By: #### C BC, ADIFF, ANEU, PABO, PABS, VARIS, RUBIS, RPR, HBSAG, HIV #### [address] [address] Eosinophils/100 WBC (Bld) 0.9 % Normal 0.0-7.0 [facility] ([place]) Comment on above: Performed By: #### C BC, ADIFF, ANEU, PABO, PABS, VARIS, RUBIS, RPR, HBSAG, HIV #### [address] [address] Lymphocytes (Bld) [#/Vol] 2.60 10 3/mcL Normal 0.77-3.85 [facility] ([place]) Comment on above: Performed By: #### C BC, ADIFF, ANEU, PABO, PABS, VARIS, RUBIS, RPR, HBSAG, HIV #### [address] [address] Lymphocytes/100 WBC (Bld) 27.8 % Normal 10.0-50.0 [facility] ([place]) Comment on above: Performed By: #### C BC, ADIFF, ANEU, PABO, PABS, VARIS, RUBIS, RPR, HBSAG, HIV #### [address] [address] Monocytes/100 WBC (Bld) 4.1 % Normal 1.7-13.0 [facility] ([place]) Comment on above: Performed By: #### C BC, ADIFF, ANEU, PABO, PABS, VARIS, RUBIS, RPR, HBSAG, HIV #### [address] [address] Neutrophils/100 WBC (Bld) 66.5 % Normal 37.0-80.0 [facility] ([place]) Comment on above: Performed By: #### C BC, ADIFF, ANEU, PABO, PABS, VARIS, RUBIS, RPR, HBSAG, HIV #### [address] [address] .NEUABSon 09-02-2019 Neutrophils (Bld) [#/Vol] 6.20 10 3/mcL High 2.85-6.16 [facility] ([place]) Comment on above: Performed By: #### C BC, ADIFF, ANEU, PABO, PABS, VARIS, RUBIS, RPR, HBSAG, HIV #### [address] [address] CBCon 09-02-2019 Erythrocyte distribution width (RBC) [Ratio] 15.1 % High 11.5-14.5 [facility] ([place]) Comment on above: Performed By: #### C BC, ADIFF, ANEU, PABO, PABS, VARIS, RUBIS, RPR, HBSAG, HIV #### [place] [id number] Hematocrit (Bld) [Volume fraction] 39.8 % Normal 37.0-47.0 [facility] ([place]) Comment on above: Performed By: #### C BC, ADIFF, ANEU, PABO, PABS, VARIS, RUBIS, RPR, HBSAG, HIV #### [place] [id number] Hemoglobin (Bld) [Mass/Vol] 13.2 G/dL Normal 12.0-16.0 [facility] ([place]) Comment on above: Performed By: #### C BC, ADIFF, ANEU, PABO, PABS, VARIS, RUBIS, RPR, HBSAG, HIV #### [place] [id number] MCH (RBC) [Entitic mass] 28.0 pg Normal 27.0-31.2 [facility] ([place]) Comment on above: Performed By: #### C BC, ADIFF, ANEU, PABO, PABS, VARIS, RUBIS, RPR, HBSAG, HIV #### [place] [id number] MCHC (RBC) [Mass/Vol] 33.2 G/dL Normal 33.0-37.0 [facility] ([place] Comment on above: Performed By: #### C BC, ADIFF, ANEU, PABO, PABS, VARIS, RUBIS, RPR, HBSAG, HIV #### [place] [id number] MCV (RBC) [Entitic vol] 84.4 fL Normal 80.0-94.0 [facility] ([place]) Comment on above: Performed By: #### C BC, ADIFF, ANEU, PABO, PABS, VARIS, RUBIS, RPR, HBSAG, HIV #### [place] [id number] Platelet mean volume (Bld) [Entitic vol] 9.3 fL Normal 7.4-10.4 [facility] ([place]) Comment on above: Performed By: #### C BC, ADIFF, ANEU, PABO, PABS, VARIS, RUBIS, RPR, HBSAG, HIV #### [address] [address] Platelets (Bld) [#/Vol] 292 10 3/mcL Normal 130-400 [facility] ([place] Comment on above: Performed By: #### C BC, ADIFF, ANEU, PABO, PABS, VARIS, RUBIS, RPR, HBSAG, HIV #### [address] [address] RBC (Bld) [#/Vol] 4.72 10 6/mcL Normal 4.20-5.40 [facility] ([place]) Comment on above: Performed By: #### C BC, ADIFF, ANEU, PABO, PABS, VARIS, RUBIS, RPR, HBSAG, HIV #### [address] [address] WBC (Bld) [#/Vol] 9.30 10 3/mcL Normal 4.60-10.80 [facility] ([place] Comment on above: Performed By: #### C BC, ADIFF, ANEU, PABO, PABS, VARIS, RUBIS, RPR, HBSAG, HIV #### [place] [id number] Gel ABOon 09-02-2019 ABO/Rh Interp Positive [facility] ([place] Comment on above: Performed By: #### C BC, ADIFF, ANEU, PABO, PABS, VARIS, RUBIS, RPR, HBSAG, HIV #### [address] [address] Gel ABSon 09-02-2019 Antibody Screen Gel Negative Normal [facility] ([place] Comment on above: Performed By: #### C BC, ADIFF, ANEU, PABO, PABS, VARIS, RUBIS, RPR, HBSAG, HIV #### [address] [address] PREGUon 09-02-2019 HCG ( test) Ql (U) Positive Normal [facility] ([place] Comment on above: Performed By: #### C BC, ADIFF, ANEU, PABO, PABS, VARIS, RUBIS, RPR, HBSAG, HIV #### [place] [address] test (u) int HCG detected. [facility] ([place] Comment on above: Performed By: #### C BC, ADIFF, ANEU, PABO, PABS, VARIS, RUBIS, RPR, HBSAG, HIV #### [place] [id number] .Auto Diffon 08-27-2019 Ammonia (P) [Mass/Vol] 0.50 10 3/mcL Normal 0.09-1.40 [facility] ([place] Comment on above: Performed By: #### C BC, ADIFF, ANEU, PABO, PABS, VARIS, RUBIS, RPR, HBSAG, HIV #### [place] [id number] Basophils (Bld) [#/Vol] 0.00 10 3/mcL Normal 0.00-0.27 [facility] ([place] Comment on above: Performed By: #### C BC, ADIFF, ANEU, PABO, PABS, VARIS, RUBIS, RPR, HBSAG, HIV #### [place] [id number] Basophils/100 WBC (Bld) 0.3 % Normal 0.0-2.5 [facility] ([place] Comment on above: Performed By: #### C BC, ADIFF, ANEU, PABO, PABS, VARIS, RUBIS, RPR, HBSAG, HIV #### [place] [id number] Eosinophils (Bld) [#/Vol] 0.10 10 3/mcL Normal 0.00-0.65 [facility] ([place] Comment on above: Performed By: #### C BC, ADIFF, ANEU, PABO, PABS, VARIS, RUBIS, RPR, HBSAG, HIV #### [place] [id number] Eosinophils/100 WBC (Bld) 0.8 % Normal 0.0-6.0 [facility] ([place]) Comment on above: Performed By: #### C BC, ADIFF, ANEU, PABO, PABS, VARIS, RUBIS, RPR, HBSAG, HIV #### [address] [address] Lymphocytes (Bld) [#/Vol] 2.00 10 3/mcL Normal 0.90-4.32 [facility] ([place] Comment on above: Performed By: #### C BC, ADIFF, ANEU, PABO, PABS, VARIS, RUBIS, RPR, HBSAG, HIV #### [address] [address] Lymphocytes/100 WBC (Bld) 22.6 % Normal 20.0-40.0 [facility] ([place] Comment on above: Performed By: #### C BC, ADIFF, ANEU, PABO, PABS, VARIS, RUBIS, RPR, HBSAG, HIV #### [address] [address] Monocytes/100 WBC (Bld) 6.0 % Normal 2.0-13.0 [facility] ([place] Comment on above: Performed By: #### C BC, ADIFF, ANEU, PABO, PABS, VARIS, RUBIS, RPR, HBSAG, HIV #### [address] [address] Neutrophils/100 WBC (Bld) 70.3 % Normal 50.0-75.0 [facility] ([place] Comment on above: Performed By: #### C BC, ADIFF, ANEU, PABO, PABS, VARIS, RUBIS, RPR, HBSAG, HIV #### [address] [address] .NEUABSon 08-27-2019 Neutrophils (Bld) [#/Vol] 6.40 10 3/mcL Normal 2.25-8.10 [facility] ([place] Comment on above: Performed By: #### C BC, ADIFF, ANEU, PABO, PABS, VARIS, RUBIS, RPR, HBSAG, HIV #### [address] [address] CBCon 08-27-2019 Erythrocyte distribution width (RBC) [Ratio] 15.3 % Normal 11.5-15.5 [facility] ([place] Comment on above: Performed By: #### C BC, ADIFF, ANEU, PABO, PABS, VARIS, RUBIS, RPR, HBSAG, HIV #### [place] [id number] Hematocrit (Bld) [Volume fraction] 37.6 % Normal 34.0-46.0 [facility] ([place]) Comment on above: Performed By: #### C BC, ADIFF, ANEU, PABO, PABS, VARIS, RUBIS, RPR, HBSAG, HIV #### [place] [address] Hemoglobin (Bld) [Mass/Vol] 13.0 G/dL Normal 12.0-16.0 [facility] ([place] Comment on above: Performed By: #### C BC, ADIFF, ANEU, PABO, PABS, VARIS, RUBIS, RPR, HBSAG, HIV #### [place] [id number] MCH (RBC) [Entitic mass] 29.0 pg Normal 27.0-33.0 [facility] ([place] Comment on above: Performed By: #### C BC, ADIFF, ANEU, PABO, PABS, VARIS, RUBIS, RPR, HBSAG, HIV #### [place] [id number] MCHC (RBC) [Mass/Vol] 34.5 G/dL Normal 32.0-36.0 [facility] ([place] Comment on above: Performed By: #### C BC, ADIFF, ANEU, PABO, PABS, VARIS, RUBIS, RPR, HBSAG, HIV #### [place] [id number] MCV (RBC) [Entitic vol] 84.2 fL Normal 80.0-99.0 [facility] ([place] Comment on above: Performed By: #### C BC, ADIFF, ANEU, PABO, PABS, VARIS, RUBIS, RPR, HBSAG, HIV #### [address] [address] Platelet mean volume (Bld) [Entitic vol] 9.8 fL Normal 6.6-10.5 [facility] ([place] Comment on above: Performed By: #### C BC, ADIFF, ANEU, PABO, PABS, VARIS, RUBIS, RPR, HBSAG, HIV #### [address] [address] Platelets (Bld) [#/Vol] 279 10 3/mcL Normal 150-450 [facility] ([place] Comment on above: Performed By: #### C BC, ADIFF, ANEU, PABO, PABS, VARIS, RUBIS, RPR, HBSAG, HIV #### [place] [id number] RBC (Bld) [#/Vol] 4.47 10 6/mcL Normal 4.10-5.30 [facility] ([place] Comment on above: Performed By: #### C BC, ADIFF, ANEU, PABO, PABS, VARIS, RUBIS, RPR, HBSAG, HIV #### [place] [id number] WBC (Bld) [#/Vol] 9.10 10 3/mcL Normal 4.50-10.80 [facility] ([place] Comment on above: Performed By: #### C BC, ADIFF, ANEU, PABO, PABS, VARIS, RUBIS, RPR, HBSAG, HIV #### [place] [address] HBSAGon 08-27-2019 Hep B Surf Ag Negative Normal Negative [facility] ([place] Comment on above: Performed By: #### C BC, ADIFF, ANEU, PABO, PABS, VARIS, RUBIS, RPR, HBSAG, HIV #### [address] [address] HIVon 08-27-2019 HIV 1/2 Ab Normal Negative [facility] ([place] Comment on above: Result Comment: Nega tive Specimen is negative for anti-HIV-1 and anti-HIV-2. Performed By: #### C BC, ADIFF, ANEU, PABO, PABS, VARIS, RUBIS, RPR, HBSAG, HIV #### [address] [address] PABOon 08-27-2019 PABO/Rh Interp Positive [facility] ([place] Comment on above: Performed By: #### C BC, ADIFF, ANEU, PABO, PABS, VARIS, RUBIS, RPR, HBSAG, HIV #### [place] [address] PABSon 08-27-2019 PABS Interp Negative Normal [facility] ([place] Comment on above: Performed By: #### C BC, ADIFF, ANEU, PABO, PABS, VARIS, RUBIS, RPR, HBSAG, HIV #### [place] [address] RPRon 08-27-2019 Reagin Ab RPR Ql (S) Non-Reactive Normal Non-Reactive [facility] ([place] Comment on above: Result Comment: The RPR test is a non-treponemal assay useful as an aid in the diagnosis of primary and secondary syphilis. It converts to positive generally within 2 weeks after the appearance of a lesion. This test is also useful for monitoring response to antibiotic therapy. A positive RPR screening test will be followed by the FTA ABS test. False positive RPR tests may occur in 1) patients with underlying autoimmune disorders, 2) elderly patients, 3) , and 4) other conditions with abnormal serum globulins. Performed By: #### C BC, ADIFF, ANEU, PABO, PABS, VARIS, RUBIS, RPR, HBSAG, HIV #### [address] [address] RUBISon 08-27-[address] Positive Normal Positive [facility] ([place] Comment on above: Result Comment: This immune status assay detects IgM and/or IgG antibody to Rubella. Interpret results in conjunction with clinical history. POS: Antibody detected; exposure at undetermined recent or distant time. If clinically indicated, order Rubella IGM to rule out recent infection. NEG: No antibody detected. Performed By: #### C BC, ADIFF, ANEU, PABO, PABS, VARIS, RUBIS, RPR, HBSAG, HIV #### [place] [id number] VARISon 08-27-[address] Positive Normal [facility] ([place] Comment on above: Result Comment: This immune status assay detects antibody to Varicella Zoster virus. Interpret results in conjunction with clinical history. Positive: Reactive for antibodies to Varicella IgG. If clinically indicated, order Varicella IGM to rule out recent infection. Equivocal: Equivocal for antibodies to Varicella IgG. Suggest repeat testing in 10-14 days. Negative: Non-reactive for antibodies to Varicella IgG. Performed By: #### C BC, ADIFF, ANEU, PABO, PABS, VARIS, RUBIS, RPR, HBSAG, HIV #### [place] [id number] HCGon 07-20-2019 Date of LMP Normal [facility] ([place] Comment on above: Performed By: #### H CG #### [place] [address] hCG, quantitative [address].1 mIU/mL Normal [facility] ([place]) Comment on above: Result Comment: Mukul titative hCG reference ranges: Non adults. . . . . . . . . . .0 - 5 mIU/mL (All values referenced to 1st IRP / 3rd IS 75/537 standards.) females based on gestational age: 1 week. . . . . . . . . . . . . . . .5 - 50 mIU/mL 2 weeks . . . . . . . . . . . . . . .50 - 500 mIU/mL 3 weeks . . . . . . . . . . . . . . .100 - 10,000 mIU/ml 4 weeks . . . . . . . . . . . . . . .1,000 - 30,000 mIU/mL 6-8 weeks . . . . . . . . . . . . . . .12,000 - 270,000 mIU/mL 12 weeks . . . . . . . . . . . . . . .15,000 - 220,000 mIU/mL 2nd trimester . . . . . . . . . . . .2,500 - 82,000 mIU/mL 3rd trimester . . . . . . . . . . . .2,400 - 50,000 mIU/mL Performed By: #### H #### [address] [address] Vital Signs Date Time Vital Sign Value Performing Clinician Taj schwartz 06-03-2022 12:01-0500 Body height 154.94 cm PA Le Miller PA Work Phone: [facility] Work Phone: 06-03-2022 12:00-0500 Body mass index (BMI) [Ratio] 41.7 kg/m2 PA Le Miller PA Work Phone: [facility] Work Phone: 06-03-2022 12:00-0500 Body weight 100.24 kg PA Le Miller PA Work Phone: [facility] Work Phone: 06-03-2022 12:00-0500 Diastolic blood pressure 78 mm[Hg] PA Le Miller PA Work Phone: [facility] Work Phone: 06-03-2022 12:00-0500 Systolic blood pressure 111 mm[Hg] PA Le Miller PA Work Phone: [facility] Work Phone: 05-21-2022 17:43-0500 Diastolic blood pressure 70 mm[Hg] PA Le Miller PA Work Phone: [facility] Work Phone: 05-21-2022 17:43-0500 Heart rate 97 /min PA Le Miller PA Work Phone: [facility] Work Phone: 05-21-2022 17:43-0500 Respiratory rate 16 /min PA Le Miller PA Work Phone: [facility] Work Phone: 05-21-2022 17:43-0500 SaO2% (BldA) [Mass fraction] 96 % PA Le Miller PA Work Phone: [facility] Work Phone: 05-21-2022 17:43-0500 Systolic blood pressure 101 mm[Hg] PA Le Miller PA Work Phone: [facility] Work Phone: 05-21-2022 17:04-0500 Body temperature 97.8 [degF] PA Le Miller PA Work Phone: [facility] Work Phone: 05-21-2022 13:54-0500 Body height 154.94 cm PA Le Miller PA Work Phone: [facility] Work Phone: 05-21-2022 13:54-0500 Body mass index (BMI) [Ratio] 41.6 kg/m2 PA Le Miller PA Work Phone: [facility] Work Phone: 05-21-2022 13:54-0500 Body weight 100 kg PA Le Miller PA Work Phone: [facility] Work Phone: 05-16-2022 10:16-0500 Body mass index (BMI) [Ratio] 43.6 kg/m2 PA Le Miller PA Work Phone: [facility] Work Phone: 05-16-2022 10:16-0500 Body weight 101.37 kg PA Le Miller PA Work Phone: [facility] Work Phone: 05-16-2022 10:16-0500 Diastolic blood pressure 77 mm[Hg] PA Le Miller PA Work Phone: [facility] Work Phone: 05-16-2022 10:16-0500 Systolic blood pressure 121 mm[Hg] PA Le Miller PA Work Phone: [facility] Work Phone: 05-09-2022 07:50-0400 Body mass index (BMI) [Ratio] 43.2 kg/m2 PA Le Miller PA Work Phone: [facility] Work Phone: 05-09-2022 07:50-0400 Body weight 100.41 kg PA Le Miller PA Work Phone: [facility] Work Phone: 05-09-2022 07:50-0400 Diastolic blood pressure 79 mm[Hg] PA Le Miller PA Work Phone: [facility] Work Phone: 05-09-2022 07:50-0400 Systolic blood pressure 117 mm[Hg] PA Le Miller PA Work Phone: [facility] Work Phone: 05-06-2022 09:38-0400 Body mass index (BMI) [Ratio] 43.5 kg/m2 PA Le Miller PA Work Phone: [facility] Work Phone: 05-06-2022 09:38-0400 Body weight 101.15 kg PA Le Miller PA Work Phone: [facility] Work Phone: 05-06-2022 09:38-0400 Diastolic blood pressure 80 mm[Hg] PA Le Miller PA Work Phone: [facility] Work Phone: 05-06-2022 09:38-0400 Systolic blood pressure 122 mm[Hg] PA Le Miller PA Work Phone: [facility] Work Phone: Encounters Encounter Date Encounter Type Care Provider Facility Start: 06-17-2022 Encounter for other preprocedural examination Nancy Tracy [facility] Start: 06-03-2022 End: 06-03-2022 ambulatory Le Miller Facility:[facility] Start: 06-03-2022 End: 06-03-2022 ambulatory PA Le MENESES Work Phone: [facility] Work Phone: Start: 06-03-2022 End: 06-03-2022 Patient encounter procedure PA Le MENESES Work Phone: [facility] Start: 05-21-2022 End: 05-21-2022 ambulatory Nancy Tracy Facility:[facility] Start: 05-21-2022 End: 05-21-2022 Admission to same day surgery center PA Le MENESES Work Phone: [facility] Start: 05-21-2022 End: 05-21-2022 ambulatory PA Le MENESES Work Phone: [facility] Work Phone: Start: 05-21-2022 ambulatory Nancy Tracy Fa cility:[facility] Start: 05-21-2022 Non-patient / Non-visit PA Perri MENESES Work Phone: [facility] Start: 05-20-2022 End: 05-20-2022 Patient encounter procedure PA Le MENESES Work Phone: [facility] Start: 05-20-2022 End: 05-20-2022 ambulatory PA Le Miller PA Work Phone: [facility] Work Phone: Start: 05-16-2022 End: 05-16-2022 ambulatory Le Miller Facility:[facility] Start: 05-16-2022 End: 05-16-2022 Patient encounter procedure PA Le Miller PA Work Phone: [facility] Start: 05-09-2022 End: 05-09-2022 ambulatory Le Miller Facility:[facility] Start: 05-09-2022 End: 05-09-2022 Patient encounter procedure ZAIRA MENESES Work Phone: [facility] Start: 05-06-2022 End: 05-06-2022 ambulatory Le Miller Facility:[facility] Start: 05-06-2022 End: 05-06-2022 Patient encounter procedure ZAIRA MENESES Work Phone: [facility] Start: 09-14-2021 End: 09-15-2021 ambulatory Le Miller Facility:[facility] Start: 09-14-2021 End: 09-14-2021 ambulatory Le Miller Facility:[facility] Start: 08-01-2021 ambulatory Nancy Tracy Fa cility:[facility] Start: 08-01-2021 End: 08-03-2021 Evaluation and management of inpatient Nancy Tracy Facility:[facility] Start: 07-25-2021 End: 07-25-2021 ambulatory Le Miller Facility:[facility] Start: 07-17-2021 End: 07-17-2021 ambulatory Le Miller Facility:[facility] Start: 07-11-2021 End: 07-12-2021 ambulatory Nancy Tracy Facility:[facility] Start: 07-11-2021 End: 07-11-2021 ambulatory Nancy Tracy Facility:[facility] Start: 06-27-2021 End: 06-27-2021 ambulatory Nancy Tracy Facility:[facility] Start: 06-25-2021 ambulatory Le Miller Facility :[facility] Start: 12-03-2019 Patient encounter procedure [facility] Procedures Date Procedure Procedure Detail Performing Clinician Start: 05-21-2022 Dilation and curettage of uterus ZAIRA MENESES Work Phone: Start: 05-21-2022 Laparoscopic salpingectomy ZAIRA MENESES Work Phone: Start: 05-20-2022 Transvaginal obstetric ultrasonography ZAIRA MENESES Work Phone: H/O: tubal ligation Status post tubal ligation ZAIRA MENESES Work Phone: Plan of Treatment Date Care Activity Detail Author Start: 05-21-2022 Ambulation without limitation [facility] Work Phone: Start: 05-21-2022 Medical regimen orders management [facility] Work Phone: Start: 05-21-2022 Medication education [facility] Work Phone: Start: 05-21-2022 Patient discharge [facility] Work Phone: Start: 05-21-2022 Procedure discontinued [facility] Work Phone: Start: 05-21-2022 Taking patient vital signs [facility] Work Phone: Start: 05-21-2022 Vital signs measurements [facility] Work Phone: Start: 05-21-2022 [facility] Work Phone: Start: 05-21-2022 Admission procedure [facility] Work Phone: Start: 05-21-2022 Anesthesia intraperitoneal lower abd w/laps nos ANESTH SURG LOWER ABDOMEN [facility] Work Phone: Start: 05-21-2022 Laparoscopy w/rmvl adnexal structures LAPAROSCOPY REMOVE ADNEXA [facility] Work Phone: Start: 05-21-2022 Tx missed first trimester surgical CARE OF MISCARRIAGE [facility] Work Phone: Beta 2 glycoprotein 1 Ab IgA and IgG and IgM panel - Serum [facility] Work Phone: Cardiolipin IgA and IgG and IgM panel - Serum [facility] Work Phone: Cardiolipin IgG and IgM panel - Serum [facility] Work Phone: Hemoglobin A1c/Hemoglobin.total in Blood [facility] Work Phone: Lupus anticoagulant assay [facility] Work Phone: Patient referral [facility] Work Phone: Thyroid stimulating hormone measurement [facility] Work Phone: Payers Date Payer Category Payer Unknown [id number] 2021 Unknown 2021 Self-pay [id number] 2021 Unknown [id number] 1992 Unknown [id number] 2.16.84 [id number] Private Health Insurance [id number] Unknown [id number] 2.16.8 [id number] Unknown [id number] 2.16.8 [id number] Unknown [id number] 2.16.8 [id number] Unknown [id number] 2.16.8 [id number] Unknown [id number] 2.16.8 [id number] Unknown [id number] 2.16.8 [id number] Unknown [id number] 2.16.8 [id number] Unknown [id number] 2.16.8 [id number] Unknown [id number] 2.16.8 40.1.027767.3.579.2.462 Unknown [id number] 2.16.8 [id number] Unknown [id number] 2.16.8 [id number] Unknown [id number] 2.16.8 [id number] Unknown [id number] 2.16.8 40.1.923731.3.579.2.462 Unknown [id number] 2.16.8 40.1.691655.3.579.2.462 Unknown [id number] 2.16.8 40.1.458865.3.579.2.462 Unknown [id number] 2.16.8 40.1.242820.3.579.2.462 Unknown [id number] 2.16.8 [id number] Unknown [id number] 2.16.8 [id number] Unknown [id number] Social History Date Type Detail Facility [facility] Work Phone: Start: 05-17-2022 End: 06-03-2022 Tobacco smoking status NHIS Unknown if ever smoked [facility] Work Phone: Start: 1990 Sex Assigned At Female W [facility] Work Phone: Goals Date Patient Goal Desired Activity /State Mental Status Date Assessment Result Facility 05-21-2022 Cognitive function Voice/Name [facility] Work Phone: Clinical Note 05-21-2022 Note Date & Type Note Facility 05-21-2022 Note [facility] Medical Records Department [address] [place] [id number] History Physical Exam 05/21/22 1021 MR#: [id number] Acct: [id number] Name: MANA NARANJO Rep #: [id number] : 1990 32 From: Nancy Tracy DO PCP: ZAIRA Woodson Status:PRE [facility] Location: VAC History and Physical Date of Admission: 05/21/22 Intake Vital Signs ??? 05/16/2210:16 05/16/2210:17 Height 5 ft 5 ft Weight: 223 lb 8 oz ??? BMI 43.6 ??? BP 121/77 H ??? Intake Visit Reasons:???FU Miscarriage per Medical Doctor Nuclear Medicine Required: No Is patient in pain?: No Allergies No Known Allergies Allergy (Verified 05/16/22 10:17) Medications levomefolate calcium 7.5 mg tablet (L-Methylfolate) 7.5 mg PO DAILY MTHFR #90 tabs 09/14/21 [Rx Confirmed 05/16/22] mecobalamin-levomefolate calcium-pyridoxal phos 3 mg-35 mg-2 mg tablet (T-Sovyha-S8-B12) 1 tab PO DAILY 30 days #30 tabs 12/10/21 [Rx Confirmed 05/16/22] vitamins no.163-iron bis-gly 20 mg-folate no.10 1 mg tablet (PNV Tabs 20-1) tab PO 05/01/22 [History Confirmed 05/16/22] aspirin 81 mg chewable tablet 81 mg PO DAILY 05/06/22 [History Confirmed 05/16/22] Post menopausal: No Patient : No : No PFSH Medical History??? COVID-19 Vaginal delivery Surgical History??? History of surgery S/P dilation and curettage Family History??? Grandfather CancerGrandmother Cancer Social History??? adopted:??? No household members:??? spouse and children housing:??? house number of children:??? 3 current occupational status:??? unemployed pets and animals:??? No history of recent travel:??? Yes ([place] ) out of state: Yes out of country: No sexually active:??? Yes Smoking Status:??? Never smoker alcohol intake:??? never substance use type:??? does not use well-balanced diet:??? daily or most days caffeine:??? No eating out:??? rarely or never during the past year weight has:??? remained stable what type of physical activity do you participate in:??? none jono/sabianist:??? [employer] seatbelt use:??? always do you feel safe at home:??? Yes additional social history:??? -[facility] HPI FU Miscarriage per Details: MANA NARANJO is a 32 year old who presents for follow up miscarriage and 2 doses of cytotec. she is still bleeding but not hemorrhaging. no dizziness or sob. She is scheduled now for a suction dilation and curettage to remove any products of conception. She is also requesting fallopian tube removal for permanent sterilization. History ? 8 ? Elective abortions ? Hx Para ? 3 ? Spontaneous abortions ? 5 Hx # Term Pregnancies ? Ectopic pregnancies ? Hx # Pregnancies ? Multiple births ? # of living children ? 3 Past Pregnancies Del. Date Name GA/Weeks Outcome Route Bth Weight Gen Labor Lgth Anesthesia Del Locatn Provider FOB Unknown ? IOL 04/12/10 Kennedy 41 live - full term 8lbs 1oz Male ??? epi dural [facility] Dr. Sayda Maynard 01/31/13 Paul 41 live - full term 8lbs 3oz Male ??? non e [facility] Dr. Reji Maynard 08/02/21 Mohsen 38 live - full term 6lbs 4oz Female ? [facility] Dr. Chaudhari Delivery Date: 04/12/10??? Last Updated by: Alie Mack ? No issues during or delivery Delivery Date: 01/31/13??? Last Updated by: Alie Mack ? No issues during or delivery. ROS Const ROS Unobtainable: All systems reviewed are unremarkable except as noted in H Resp Resp: Reports system reviewed and no additional complaints, except as documented; Denies cough GI GI: Reports as per HPI Psych Psych: Reports system reviewed and no additional complaints, except as documented Exam Const General: cooperative, healthy appearing, comfortable and no acute distress Resp Effort Inspection: normal respiratory effort General: bimanual renal exam normal bilaterally External Female Exam: normal appearance of the urethra Urethra: normal appearance of the urethra Speculum Exam - Vagina: normal appearance of the vagina Speculum Exam - Cervix: normal appearance of the cervix Bimanual Exam- Adnexa, other: normal adnexae and normal Pelvic Support: normal Other: ultrasound shows a 2.5 cm area of retained products in the uterus. Skin (more content not included)... [facility] Evaluation note Note Date & Type Note Facility Evaluation note Diagnosis Onset Date History of miscarriage, currently acute MTHFR deficiency complicating resolved Obesity affecting resolved resolved Supervision of high risk pre gnancy, antepartum resolved Threatened resolved History of miscarriage, currently acute Missed acute Contraceptive management acu te Missed acute [facility] Work Phone: Evaluation note Note Date & Type Note Facility Evaluation note Diagnosis Onset Date History of miscarriage, currently acute MTHFR deficiency complicating resolved Obesity affecting resolved resolved Supervision of high risk pre gnancy, antepartum resolved Threatened resolved History of miscarriage, currently acute Missed acute Contraceptive management acu te Missed acute Postoperative examination no neactive [facility] Work Phone: Summary Purpose Family History No Family History Records Found Relationship Condition Age at Onset Recorded Date/T sheila grandfather Malignant neoplasm Unknown grandmother Malignant neoplasm Unknown Advance Directives No Advanced Directives Records Found Advance Directive Response Recorded Date/ Time Living Will No May 17 022 3:03pm Power of Cook Vegetable No May 17, 2022 3:03pm Chief Complaint and Reason for Visit Chief Complaint NOB LMP 03/06/22 f/u early OB, possible miscarriage FU Miscarriage per SM VIABILITY SUCTION D&C, LAP BSO SUCTION D&C, LAP BSO Reason for Visit History of miscarria ge, currently MTHFR deficiency complicating Obesity affecting Supervision of high risk , antepartum Threatened History of miscarriage, currently Missed Contraceptive management Missed Chief Complaint NOB LMP 03/06/22 f/u early OB, possible miscarriage FU Miscarriage per SM VIABILITY SUCTION D&C, LAP BSO SUCTION D&C, LAP BSO 1w post op D&C SAB Reason for Visit History of miscarria ge, currently MTHFR deficiency complicating Obesity affecting Supervision of high risk , antepartum Threatened History of miscarriage, currently Missed Contraceptive management Missed Postoperative examination Additional Source Comments INFORMATION SOURCE (unrecogn ized section and content) DATE CREATED AUTHOR 09/06/2019 Count includes the [facility] ([place]) DATE CREATED AUTHOR AUTHOR'S ORGANIZ ATION 12/03/2019 [facility] DATE CREATED AUTHOR AUTHOR'S ORGANIZ ATION 06/17/2022 [facility] FOR RECORDS PERTAINING TO PATIENTS WHO ARE OR HAVE BEEN ENROLLED IN A CHEMICAL DEPENDENCY/SUBSTANCEABUSE PROGRAM, SOME INFORMATION MAY BE OMITTED. This clinical summary was aggregated from multiple sources. Caution should be exercised in using it in the provision of clinical care. This summary normalizes information from multiple sources, and as a consequence, information in this document may materially change the coding, format and clinical context of patient data. In addition, data may be omitted in some cases. CLINICAL DECISIONS SHOULD BE BASED ON THE PRIMARY CLINICAL RECORDS. [facility] [employer] [facility]. provides no warranty or guarantee of the accuracy or completeness of information in this document.
[2025-03-11 21:00] VITALS: BP 120/78; PULSE 116; RESP 18; TEMP 36.6; O2SAT 98
== END 2025-03-11 21:22 | disposition home or self-care (01) ==
PROVIDERS: Emergency Provider Emergency Medicine; PCP Physician Assistant; Visit Provider Emergency Medicine
DX: N91.2 Amenorrhea, unspecified (principal)
CPT/HCPCS: 80053; 84703; 85025; 99282